=== PATIENT | female | born 1935 | race Caucasian/White ===

== ENCOUNTER → 2016-09-20 | Outpatient (CLI) | payer MEDICARE, OTHER ==
[~2016-09-20] MED LIST: CLOT45CR46 TOP; DILT240C87 PO; DZPM2T PO; FLUO20CA25 PO; GABA-488 PO; GLIM4TAB PO; HUMALOG KWIKPEN SQ; INSU100I23 SQ; IRBE150T19 PO; LANTUS SOLOSTAR SQ; NF-ESOM40C PO; ONDA8TAB9 PO; SCR1T1 PO; SERT50TA9 PO; SIMV40TA4 PO; TRIA1TAB3 PO
--- NOTE | 2016-09-21 11:42 | Diagnostic Imaging Report ---
Thyroid scan and uptake Technique: After the oral administration of 200 ?Ci of I-123 capsule, 4 hour and 24-hour uptake is measured and plantar images over the thyroid gland obtained. Indication: There is noted FINDINGS: Thyroid uptake at 4 hours is 7 %, and the at 24 hours is 22 %. Planar images demonstrate no evidence of a cold or hot nodule. IMPRESSION: Normal thyroid uptake and scan. Dictated by: Dictated on workstation # [id number]
== END ==
LOC: CARD 10:26
PROVIDERS: ATTEND Family Medicine
DX: E04.1 Nontoxic single thyroid nodule (principal)
CPT/HCPCS: 78014

== ENCOUNTER → 2020-05-13 | Outpatient (CLI) | payer MEDICARE, OTHER ==
--- NOTE | 2020-05-13 11:18 | Diagnostic Imaging Report ---
INDICATION: Dysphagia. Procedure was performed in conjunction with speech pathology. Video fluoroscopy was performed during swallowing of barium of multiple consistencies. Patient tested thin barium as well as applesauce, banana, ground meat and cracker consistency. Total of 50 seconds of fluoroscopic time was utilized. Oral phase unremarkable. There is normal epiglottic tilt and laryngeal elevation. No laryngeal penetration or aspiration was observed. No residue was detected. IMPRESSION: Normal modified barium swallow. Dictated by: Dictated on workstation # [id number]
== END ==
LOC: RAD 10:17
PROVIDERS: ATTEND Otolaryngology Otolaryngology/Facial Plastic Surgery
DX: K21.9 Gastro-esophageal reflux disease without esophagitis (principal)
CPT/HCPCS: 74230

== ENCOUNTER → 2020-05-28 | Outpatient (CLI) | payer OTHER | LOC: GIR 16:27 | PROVIDERS: ATTEND Family Medicine | DX: Z01.89 Encounter for other specified special examinations (principal) | CPT/HCPCS: 84132 ==

== ENCOUNTER → 2020-07-22 | Outpatient (CLI) | payer MEDICARE, OTHER ==
[2020-07-22 13:59] LABS: ABSOLUTE RETIC # 85 10e9/uL (24-90); BASOPHILS % (AUTO) 1 % (0-10); EOSINOPHILS # (AUTO) 0.1 10^3/uL (0.0-0.3); EOSINOPHILS % (AUTO) 3 % (0-10); HEMATOCRIT 37 % (35-52); HEMOGLOBIN 12.2 g/dL (11.5-16.0); LYMPHOCYTES # (AUTO) 1.8 10^3/uL (1.0-4.0); LYMPHOCYTES % (AUTO) 41 % (12-44); MEAN CORPUSCULAR HEMOGLOBIN 30 pg (25-34); MEAN CORPUSCULAR HGB CONC 33 g/dL (32-36); MEAN CORPUSCULAR VOLUME 93 fL (80-99); MEAN PLATELET VOLUME 12.3 fL (9.0-12.2); MONOCYTES # (AUTO) 0.3 10^3/uL (0.0-1.0); MONOCYTES % (AUTO) 7 % (0-12); NEUTROPHILS % (AUTO) 47 % (42-75); PLATELET COUNT 124 10^3/uL (130-400); RETICULOCYTE % 2.11 % (0.50-2.40); WHITE BLOOD COUNT 4.3 10^3/uL (4.3-11.0)
[2020-07-22 14:25] LABS: BAND NEUTROPHILS 0 %; BASOPHILS % (MANUAL) 1 %; EOSINOPHILS % (MANUAL) 2 %; LYMPHOCYTES % (MANUAL) 44 %; MONOCYTES % (MANUAL) 5 %; NEUTROPHILS % (MANUAL) 48 %; RBC MORPH NORMAL
== END ==
LOC: GIR 13:05
PROVIDERS: ATTEND Family Medicine
DX: Z01.89 Encounter for other specified special examinations (principal)
CPT/HCPCS: 85007; 85027; 85045; 85055

== ENCOUNTER 2022-02-06 07:58 | Inpatient (IN) | payer MEDICARE, OTHER ==
[~2022-02-06] VITALS: Ht 165.1 cm; Wt 132.6 kg
[2022-02-06 09:15] VITALS: BP 99/40
[2022-02-06] MEDS ORDERED: ONDANSETRON 4 MG/2 ML (SDV) Z0FRAN IV PRN (09:15)
[2022-02-06] MEDS ORDERED: ANTACID SUSP 30 ML UDC (MYLANTA) PO PRN (09:15)
[2022-02-06] MEDS ORDERED: BISACODYL 10 MG SUPP (DULCOLAX) PR PRN (09:15)
[2022-02-06] MEDS ORDERED: MELATONIN 3 MG TABLET PO PRN (09:15)
[2022-02-06] MEDS ORDERED: HALOPERIDOL 5 MG/ML (HALDOL) VIAL IV PRN (09:15)
[2022-02-06] MEDS ORDERED: fentaNYL DRIP PRE-MIX 250 ML IV SCH (09:15)
[2022-02-06] MEDS ORDERED: LACTULOSE SYRUP 10GM/15ML (ENULOSE) 30ML UDC PO PRN (09:15)
[2022-02-06] MEDS ORDERED: diphenhydrAMINE 25 MG TAB (BENADRYL) PO PRN (09:15)
[2022-02-06] MEDS ORDERED: VANCOMYCIN INJECTION 0.1 MG in NS (IVPB) 250 ML IV SCH (09:15)
[2022-02-06] MEDS ORDERED: polyethylene glycoL POWDER 17 GM (MIRALAX) PACK PO PRN (09:15)
[2022-02-06] MEDS ORDERED: diphenhydrAMINE 50 MG/ML INJ (BENADRYL) IVP PRN (09:15)
[2022-02-06] MEDS ORDERED: NS IV 1000 ML 1,000 ML IV SCH ×2 (09:15→13:15)
[2022-02-06] MEDS ORDERED: NS IV 500 ML 500 ML IV PRN (09:15)
[2022-02-06] MEDS ORDERED: MILK OF MAGNESIA 400 MG/5 ML 30 ML UDC PO PRN (09:15)
[2022-02-06] MEDS ORDERED: ACETAMINOPHEN 325 MG TABLET PO PRN (09:15)
[2022-02-06] MEDS ORDERED: ONDANSETRON 4 MG (ZOFRAN) ORAL DISSOLVE TAB PO PRN (09:15)
[2022-02-06] MEDS ORDERED: DexMEDEtomidine 250 ML DRIP 250 ML IV SCH (09:15)
[2022-02-06] MEDS ORDERED: CALCIUM CARBONATE 500 MG (TUMS) TAB.CHEW PO PRN (09:15)
[2022-02-06] MEDS ORDERED: PROPOFOL DRIP (ICU) 100 ML IV ONE (10:54)
[2022-02-06] MEDS ORDERED: PIPERACILLIN SODIUM/TAZOBACTAM 4.5 GM in NS (IVPB) 100 ML IV ONE (11:00)
[2022-02-06 11:16] VITALS: BP 124/98
--- NOTE | 2022-02-06 11:56 | Diagnostic Imaging Report ---
INDICATION: Dyspnea COMPARISON: 05/11/2012 TECHNIQUE: Single radiograph the chest dated 02/06/2022. FINDINGS: Endotracheal tube is present in the distal tip overlying the tracheal air: Above the level of the melani just inferior to the clavicular heads. A right IJ central venous catheter is present. The distal tip is difficult to visualize, though likely terminates overlying the cavoatrial junction. Enteric catheter is present extending the left upper abdomen. The cardiac silhouette is mildly enlarged. Near 10 cm round opacity is noted within the peripheral left mid to upper lung, new from the prior examination. Additional patchy opacities are suggested within the left lung base with potential small left pleural effusion. Right lung is grossly clear. No significant right pleural effusion. No pneumothorax. No acute osseous abnormality. IMPRESSION: New near 10 cm round density within the peripheral left mid and upper lung. This could relate to focal infiltrate such as pneumonia. However, mass lesion/neoplasm should be considered. A CT of the chest, preferably with contrast would help to further evaluate. Left basilar atelectasis and/or pneumonitis with suspected tiny left pleural effusion. Lines and tubes as above. Dictated by: Dictated on workstation # [id number]
[2022-02-06] MEDS ORDERED: ENOXAPARIN 40 MG/0.4 ML (LOVENOX) SYR SC SCH (12:00)
[2022-02-06] MEDS ORDERED: VANCOMYCIN 2000 MG/NS 500 ML IVPB IV SCH ×2 (12:00)
--- NOTE | 2022-02-06 12:31 | Tele-ICU Progress Note ---
Subjective Date Seen by a Provider: Feb 06, 2022 Subjective/Events-last exam This virtual visit was conducted using real time audio/video. Thank you for asking us to see this patient for progressive respiratory failure requiring intubation and mechanical ventilation. Being treated also for pna and sepsis. Recent events: Intubated earlier today 02/06/2022 in [place] and transferred. PMH: DM, HTN, HL, GERD. SH: smoking history: significant 2nd hand exposure. FH: Non-contributory ROS: limited by patient's clinical condition. PE: Obese, pale. 127/44 on Levophed. O2 sat 100% on AC22/450/60%/+5. HEENT: No obvious masses, adenopathy or JVD. Chest: coarse breath sounds on auscultation. CV: RRR S1 S2 No murmur or added sounds. Abd: Non-tender. Bowel sounds Y. : Unremarkable. Thornton Y. CONSUMER ANALYST/psychiatric: Grossly intact. No obvious focal findings. Extremities: 2+ edema. Capillary refill < 3 seconds. Skin: unremarkable. Results: Elevated BNP 19K, WCC 20K, BUN 21, Creat 2.03. Decreased Hb 11.4. B.22/44/83. CXR: Poor quality. 10 CM L mid lung opacity with scattered opacities LLL. Available chart/ vitals / labs / images reviewed. Video assessment done using teleICU camera, rest of exam as per RN. A/P: Respiratory insufficiency: Continue present management with vent., Propofol. Repeat ABG ordered. Monitor for increasing oxygenation needs. Will need CTC with contrast when renal function improves, so as to help delineate nature of L lung 10 cm opacity. Differential includes consolidation, abscess and neoplasm. Critical Care: critically ill patient. Cont. Levophed, abx, SSI, Leelee. Consider Cardiology consult/ECHO. Discussed with RN Christa. Asked RN to reach out to eICU if any questions or concerns later. Time spent with patient/coordination of care with other health professionals (mins): Sepsis Event Evaluation Height, Weight, BMI Height: 5'6.00" Weight: 274lbs. 0.0oz. [id number]; BMI Method:Stated Exam Exam Patient acknowledged, consented, and participated in this virtual visit which was conducted using real time audio/video Vital Signs Date Time Temp Pulse Resp B/P (MAP) Pulse Ox O2 Delivery O2 Flow Rate FiO2 02/06/22 12:07 36.2 02/06/22 11:16 80 22 97 70 02/06/22 10:56 80 Height & Weight Height: 5'6.00" Weight: 274lbs. 0.0oz. [id number]; BMI Method:Stated General Appearance: Chronically ill, Obese Respiratory: Decreased Breath Sounds, Rales (See free text) Peripheral Pulses: 1+ Dorsalis Pedis (R), 1+ Left Dors-Pedis (L) Assessment/Plan Assessment/Plan See free text. Critical Care: Ventilator Management SHIMON PADILLA MD Feb 06, 2022 12:31
[2022-02-06 12:46] LABS: BASOPHILS # (AUTO) 0.1 10^3/uL (0.0-0.1); BASOPHILS % (AUTO) 0 % (0-10); EOSINOPHILS % (AUTO) 0 % (0-10); HEMATOCRIT 35 % (35-52); HEMOGLOBIN 10.8 g/dL (11.5-16.0); LYMPHOCYTES # (AUTO) 1.8 10^3/uL (1.0-4.0); LYMPHOCYTES % (AUTO) 5 % (12-44); MEAN CORPUSCULAR HEMOGLOBIN 30 pg (25-34); MEAN CORPUSCULAR HGB CONC 31 g/dL (32-36); MEAN CORPUSCULAR VOLUME 98 fL (80-99); MEAN PLATELET VOLUME 10.1 fL (9.0-12.2); MONOCYTES # (AUTO) 1.1 10^3/uL (0.0-1.0); MONOCYTES % (AUTO) 3 % (0-12); NEUTROPHILS # (AUTO) 27.7 10^3/uL (1.8-7.8); NEUTROPHILS % (AUTO) 85 % (42-75); PLATELET COUNT 299 10^3/uL (130-400)
[2022-02-06 12:47] LABS: ABG BASE EXCESS -9.4 MMOL/L (-2.5-2.5); ABG OXYGEN SATURATION 100 % (94-100); ABG PCO2 31 MMHG (35-45); ABG PO2 132 MMHG (79-93); ABG TCO2 16.6 MMOL/L (21.0-31.0)
[2022-02-06 12:52] LABS: ABG PH 7.32 (7.37-7.43)
[2022-02-06 12:53] LABS: INSPIRED O2 60 L; PATIENT TEMP 36.3; VENTILATOR YES
[2022-02-06 13:02] LABS: WHITE BLOOD COUNT 32.7 10^3/uL (4.3-11.0)
[2022-02-06 13:05] LABS: ALBUMIN 2.2 GM/DL (3.2-4.5); BILIRUBIN,TOTAL 1.4 MG/DL (0.1-1.0); CALCIUM 8.5 MG/DL (8.5-10.1); CREATININE SERUM 1.92 MG/DL (0.60-1.30); POTASSIUM 4.9 MMOL/L (3.6-5.0); TOTAL PROTEIN 4.9 GM/DL (6.4-8.2)
[2022-02-06 13:11] VITALS: BP 148/54
[2022-02-06] MEDS: RT-ALBUTEROL/IPRATROPIUM 3 ML (DUONEB) VIAL INH SCH ×3 (13:28→21:54)
[2022-02-06 13:29] VITALS: BP 153/48
[2022-02-06] MEDS ORDERED: RT-ALBUTEROL/IPRATROPIUM 3 ML (DUONEB) VIAL INH PRN (13:30)
[2022-02-06 13:35] LABS: ANISOCYTOSIS SLIGHT; BAND NEUTROPHILS 25 %; BASOPHILS % (MANUAL) 0 %; EOSINOPHILS % (MANUAL) 0 %; LYMPHOCYTES % (MANUAL) 7 %; METAMYELOCYTES % 9 %; MONOCYTES % (MANUAL) 4 %; NEUTROPHILS % (MANUAL) 55 %; POLYCHROMASIA SLIGHT
[2022-02-06] MEDS: NS IV 1000 ML 1,000 ML IV SCH ×3 (14:22→23:10)
[2022-02-06] MEDS: NOREPINEPHRINE 8 MG/250 ML 250 ML IV SCH ×2 (14:23→19:45)
[2022-02-06] MEDS: inSUlin ASPART (NovoLOG) 1 UNIT/0.01 ML (CHARGE PER UNIT) SC SCH ×3 (14:23→22:05)
--- NOTE | 2022-02-06 14:46 | Physical Therapy Progress Note ---
Therapy Progress Note Patient is currently intubated and sedated. Will follow and start when appropriate and patient can participate. RICKY RECINOS PT Feb 06, 2022 14:46
--- NOTE | 2022-02-06 15:28 | Consultation-Cardiology ---
HPI-Cardiology Cardiology Consultation: Date of Consultation 02/06/22 Time Seen by a Provider: 15:35 Date of Admission 02-06-22 Attending Physician Karla Rivera MD Admitting Physician Admitting Physician: Criselda Gonzales DO Attending Physician: Criselda Gonzales DO Consulting Physician Ivan Hunt MD HPI: Chief Complaint: Sepsis Ms. Stephen is an 86 yr old female admitted to ICU 2 from [facility]. She is currently intubated and sedated. Her daughter and daughter -in-law are at the bedside. They report she had been in the halfway up until the day before . They report she has had increasing SOB for the last month, but yesterday the SOB became significantly worse. She developed a cough and fever. They report she has had no c/o CP or palpitations. She has had bilat LE ankle swelling for the last few weeks. She had one episode of diarrhea last week. Review of Systems-Cardiology Review of Systems Other comments To the extent that it could be obtained from family is as per [facility] HZD-Slexji-Uuedjc Hx Immunizations Up To Date Date of Pneumonia Vaccine: Mar 11, 2009 Past Medical History PMH As described under Assessment. Family Medical History Family Medical History: Unable to obtain d/t intubation and sedation Allergies and Home Medications Allergies Coded Allergies: Cephalexin Monohydrate (Unverified Allergy, Unknown, 03/12/12) morphine (Unverified Allergy, Unknown, 03/12/12) Uncoded Allergies: tape (Allergy, Mild, 05/11/12) Patient Home Medication List Betamethasone/Clotrimazole (Lotrisone Cream 45 Gm) 45 Gm Tube, 0 TOP BID Prescribed by: KIMBERLY HAILE on 05/11/12 1452 Diazepam (Valium 2 Mg Tab) 2 Mg Tab, 1 EACH PO HS, (Reported) Entered as Reported by: DARY WILKES on 08/12/14 0845 Esomeprazole Mag Trihydrate (Nexium) 40 Mg Capsule.dr, 1 CAP PO BID, (Reported) Entered as Reported by: REMINGTON BROOKS on 03/12/12 1410 Fluoxetine Hcl (Fluoxetine Hcl) 20 Mg Capsule, 1 EACH PO DAILY, (Reported) Entered as Reported by: DARY WILKES on 08/12/14 0845 Gabapentin (Gabapentin) 300 Mg Capsule, 300 MG PO BID, (Reported) Entered as Reported by: DARY WILKES on 08/12/14 0845 Irbesartan (Irbesartan) 150 Mg Tablet, 150 MG PO DAILY, (Reported) Entered as Reported by: REMINGTON BROOKS on 03/12/12 141 Simvastatin (Simvastatin) 40 Mg Tablet, 40 MG PO HS, (Reported) Entered as Reported by: REMINGTON BROOKS on 03/12/12 141 Triamterene/Hydrochlorothiazid (Triamterene-Hctz 37.5-25 Mg Tb) 1 Each Tablet, 1 EACH PO DAILY, (Reported) Entered as Reported by: REMINGTON BROOKS on 03/12/12 141 [Humalog Kwikpen] , SQ AC, (Reported) Entered as Reported by: REMINGTON BROOKS on 03/12/12 1412 [Lantus Solostar] , 60 SQ HS, (Reported) Entered as Reported by: REMINGTON BROOKS on 03/12/121409 Physical Exam-Cardiology Physical Exam Vital Signs/I&O 02/06/22 02/07/22 02/07/22 02/07/22 23:00 00:00 00:00 00:00 Pulse 89 84 87 Resp 21 21 B/P (MAP) 140/55 Pulse Ox 94 96 95 O2 Delivery Mechanical Ventilator Mechanical Ventilator Mechanical Ventilator O2 Flow Rate 40.00 40.00 FiO2 40 02/07/22 02/07/22 02/07/22 02/07/22 01:00 01:00 01:32 01:35 Pulse 84 85 82 83 Resp 19 B/P (MAP) 132/43 144/45 Pulse Ox 96 O2 Delivery Mechanical Ventilator O2 Flow Rate 40.00 02/07/22 02/07/22 02/07/22 02/07/22 01:53 02:00 02:57 02:59 Pulse 82 86 91 91 Resp 19 18 B/P (MAP) 134/58 132/49 Pulse Ox 95 95 O2 Delivery Mechanical Ventilator O2 Flow Rate 40.00 FiO2 40 02/07/22 02/07/22 02/07/22 02/07/22 03:00 03:06 03:30 04:00 Pulse 92 93 85 Resp 18 B/P (MAP) 133/48 (76) 141/44 133/44 Pulse Ox 96 96 O2 Delivery Mechanical Ventilator Mechanical Ventilator O2 Flow Rate 40.00 FiO2 40 02/07/22 02/07/22 02/07/22 02/07/22 04:00 04:18 05:00 05:51 Temp 36.6 Pulse 85 80 80 Resp 18 18 B/P (MAP) 148/56 (86) 154/54 (87) 135/42 Pulse Ox 95 96 O2 Delivery Mechanical Ventilator Mechanical Ventilator O2 Flow Rate 40.00 40.00 02/07/22 02/07/22 02/07/22 02/07/22 06:00 06:03 06:37 07:00 Pulse 80 77 81 80 Resp 17 18 B/P (MAP) 136/47 (76) 118/37 138/42 145/52 (83) Pulse Ox 96 97 O2 Delivery Mechanical Ventilator Mechanical Ventilator O2 Flow Rate 40.00 40.00 02/07/22 02/07/22 02/07/22 02/07/22 07:00 07:00 07:23 08:00 Pulse 86 79 80 Resp 18 B/P (MAP) 146/44 Pulse Ox 96 95 O2 Delivery Mechanical Ventilator FiO2 40 40 02/07/22 02/07/22 02/07/22 02/07/22 08:00 08:01 08:39 08:46 Temp 37.3 Pulse 87 86 81 Resp 28 B/P (MAP) 126/40 142/48 (79) Pulse Ox 97 O2 Delivery Mechanical Ventilator O2 Flow Rate 40.00 02/07/22 02/07/22 02/07/22 09:00 10:00 10:39 Pulse 98 86 86 Resp 19 18 18 B/P (MAP) 154/58 (90) 146/51 (82) Pulse Ox 94 96 96 O2 Delivery Mechanical Ventilator Mechanical Ventilator O2 Flow Rate 40.00 40.00 FiO2 40 02/07/22 00:00 Intake Total 1190 ml Output Total 1300 ml Balance -110 ml Capillary Refill : Constitutional: other (intubated and sedated) HEENT: No xanthelasmas are seen Neck: No carotid bruit; carotid pulses are 2 + bilaterally Respiratory: rhonchi (scattered), other (fair air entry; intubated; coarse breath sounds) Cardiovascular: regular rate-rhythm; No JVD; S1 and S2, systolic murmur Gastrointestinal: soft, audible bowel sounds, other (lg abd hernia) Extremities: no lower extremity edema bilateral Neurologic/Psychiatric: other (unable to cooperate with exam d/t sedation) Skin: No rash on exposed areas, No ulcerations on exposed areas Data Review Labs Laboratory Tests 02/06/22 12:30: White Blood Count 32.7*H, Red Blood Count 3.58L, Hemoglobin 10.8L, Hematocrit 35, Mean Corpuscular Volume 98, Mean Corpuscular Hemoglobin 30, Mean Corpuscular Hemoglobin Concent 31L, Red Cell Distribution Width 14.3, Platelet Count 299, Mean Platelet Volume 10.1, Immature Granulocyte % (Auto) 6, Neutrophils (%) (Auto) 85H, Lymphocytes (%) (Auto) 5L, Monocytes (%) (Auto) 3, Eosinophils (%) (Auto) 0, Basophils (%) (Auto) 0, Neutrophils # (Auto) 27.7H, Lymphocytes # (Auto) 1.8, Monocytes # (Auto) 1.1H, Eosinophils # (Auto) 0.0, Basophils # (Auto) 0.1, Immature Granulocyte # (Auto) 2.0H, Neutrophils % (Manual) 55, Lymphocytes % (Manual) 7, Monocytes % (Manual) 4, Eosinophils % (Manual) 0, Basophils % (Manual) 0, Metamyelocytes % 9, Band Neutrophils 25, Polychromasia SLIGHT, Anisocytosis SLIGHT, Blood Gas Puncture Site L ART LINE, Blood Gas Patient Temperature 36.3, Arterial Blood pH 7.32*L, Arterial Blood Partial Pressure CO2 31L, Arterial Blood Partial Pressure O2 132H, Arterial Blood HCO3 16*L, Arterial Blood Total CO2 16.6L, Arterial Blood Oxygen Saturation 100, Arterial Blood Base Excess -9.4L, Joe Test N/A, Blood Gas Ventilator Setting YES, Blood Gas Inspired Oxygen 60 L, Sodium Level 138, Potassium Level 4.9, Chloride Level 106, Carbon Dioxide Level 14L, Anion Gap 18H, Blood Urea Nitrogen 23H, Creatinine 1.92H, Estimat Glomerular Filtration Rate 25, BUN/Creatinine Ratio 12, Glucose Level 309H, Lactic Acid Level 8.24*H, Calcium Level 8.5, Corrected Calcium 9.9, Total Bilirubin 1.4H, Aspartate Amino Transf (AST/SGOT) 12, Alanine Aminotransferase (ALT/SGPT) 11, Alkaline Phosphatase 59, Total Protein 4.9L, Albumin 2.2L, Triglycerides Level 73 02/06/22 15:25: Lactic Acid Level 8.51*H 02/06/22 15:58: Glucometer 294H 02/06/22 19:30: Lactic Acid Level 9.11*H 02/06/22 20:12: Glucometer 294H 02/06/22 23:35: Lactic Acid Level 7.25*H 02/07/22 01:58: Glucometer 315H 02/07/22 03:07: Lactic Acid Level 4.19*H 02/07/22 05:45: White Blood Count 36.2*H, Red Blood Count 3.49L, Hemoglobin 10.5L, Hematocrit 33L, Mean Corpuscular Volume 95, Mean Corpuscular Hemoglobin 30, Mean Corpuscular Hemoglobin Concent 32, Red Cell Distribution Width 14.3, Platelet Count 265, Mean Platelet Volume 10.0, Immature Granulocyte % (Auto) 6, Neutrophils (%) (Auto) 85H, Lymphocytes (%) (Auto) 5L, Monocytes (%) (Auto) 4, Eosinophils (%) (Auto) 0, Basophils (%) (Auto) 1, Neutrophils # (Auto) 30.6H, Lymphocytes # (Auto) 1.7, Monocytes # (Auto) 1.4H, Eosinophils # (Auto) 0.1, Basophils # (Auto) 0.2H, Immature Granulocyte # (Auto) 2.1H, Sodium Level 139, Potassium Level 3.9, Chloride Level 106, Carbon Dioxide Level 20L, Anion Gap 13, Blood Urea Nitrogen 30H, Creatinine 1.71H, Estimat Glomerular Filtration Rate 29, BUN/Creatinine Ratio 18, Glucose Level 336H, Lactic Acid Level 2.97*H, Calcium Level 8.4L, Corrected Calcium 9.8, Phosphorus Level 2.2L, Magnesium Level 1.2L, Total Bilirubin 0.7, Aspartate Amino Transf (AST/SGOT) 10, Alanine Aminotransferase (ALT/SGPT) 10, Alkaline Phosphatase 59, Total Protein 5.0L, Alb umin 2.2L 02/07/22 08:25: Blood Gas Puncture Site ART LINE, Blood Gas Patient Temperature 36.2, Arterial Blood pH 7.39, Arterial Blood Partial Pressure CO2 38, Arterial Blood Partial Pressure O2 76L, Arterial Blood HCO3 23, Arterial Blood Total CO2 23.8, Arterial Blood Oxygen Saturation 98, Arterial Blood Base Excess -1.8, Joe Test YES-POS, Blood Gas Ventilator Setting YES, Blood Gas Inspired Oxygen 40.0 Microbiology 02/06/22 Gram Stain - Final, Resulted 02/06/22 Sputum Culture, Resulted Pending Radiology NAME: CHIQUITA STEPHEN [facility] REC#: [id number] PT STATUS: ADM IN : 1935 PHYSICIAN: CRISELDA GONZALES DO ADMIT DATE: 02/06/22/ICU Draft Date of Exam:02/06/22 CHEST 1 VIEW, AP/PA ONLY INDICATION: Dyspnea COMPARISON: 05/11/2012 TECHNIQUE: Single radiograph the chest dated 02/06/2022. FINDINGS: Endotracheal tube is present in the distal tip overlying the tracheal air: Above the level of the melani just inferior to the clavicular heads. A right IJ central venous catheter is present. The distal tip is difficult to visualize, though likely terminates overlying the cavoatrial junction. Enteric catheter is present extending the left upper abdomen. The cardiac silhouette is mildly enlarged. Near 10 cm round opacity is noted within the peripheral left mid to upper lung, new from the prior examination. Additional patchy opacities are suggested within the left lung base with potential small left pleural effusion. Right lung is grossly clear. No significant right pleural effusion. No pneumothorax. No acute osseous abnormality. IMPRESSION: New near 10 cm round density within the peripheral left mid and upper lung. This could relate to focal infiltrate such as pneumonia. However, mass lesion/neoplasm should be considered. A CT of the chest, preferably with contrast would help to further evaluate. Left basilar atelectasis and/or pneumonitis with suspected tiny left pleural effusion. Lines and tubes as above. Dictated on workstation # [id number] Dict: 02/06/22 1148 Trans: 02/06/22 1155 [facility] [id number] Interpreted by: WAYNE GARCIAS MD Electronically signed by: A/P-Cardiology Assessment/Admission Diagnosis Acute resp failure requiring intubation/sedation Pneumonia with sepsis - management per medical services CHF - undetermined systolic or diastolic - echocardiogram today HTN CKD per family report DM H/o colon resection d/t diverticulitis Lg abdominal hernia H/O back surgery Limited mobility Discussion and Recomendations Acute respiratory failure with sepsis d/t pneumonia - management per medical/eICU services Hypotension d/t sepsis - requiring pressor support CHF - echocardiogram - treat with diuretics as indicated/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 Gonzales for this consult DARY CROFT Feb 06, 2022 15:28
[2022-02-06] MEDS ORDERED: FUROSEMIDE 40 MG/4 ML INJ (LASIX) IVP NR (16:15)
[2022-02-06 18:15] VITALS: BP 153/47
--- NOTE | 2022-02-06 18:16 | Consultation-Cardiology ---
HPI-Cardiology Cardiology Consultation: Date of Consultation 02/06/22 Time Seen by a Provider: 17:45 Date of Admission Attending Physician Karla Rivera MD Admitting Physician Admitting Physician: Criselda Anderson DO Attending Physician: Criselda Anderson DO Consulting Physician JETT RAMOS MD, MA, FACP, FACC, [facility] [place], CCDS Physician requesting consult: Dr Anderson HPI: Chief Complaint: Reason for Card consult: Ac resp failure Ms. Stephen is an 86 yr old female admitted to ICU 2 [place] [facility] She is currently intubated and sedated. Her daughter and daughter -in-law are at the bedside. They report she had been in the skilled nursing up until the day before . They report she has had increasing SOB for the last month, but yesterday the SOB became significantly worse. She developed a cough and fever. They report she has had no c/o CP or palpitations. She has had bilat LE ankle swelling for the last few weeks. She had one episode of diarrhea last week. [id number]-Tifyln Hx Patient Social History Smoking Status: Never a Smoker Have you traveled recently?: No Alcohol Use?: No Pt feels they are or have been: No Immunizations Up To Date Date of Pneumonia Vaccine: Mar 11, 2009 Date of Influenza Vaccine: Feb 06, 2022 Past Medical History PMH As described under Assessment. Family Medical History Family Medical History: Unable to obtain d/t intubation and sedation Allergies and Home Medications Allergies Coded Allergies: Cephalexin Monohydrate (Unverified Allergy, Unknown, 03/12/12) morphine (Unverified Allergy, Unknown, 03/12/12) Uncoded Allergies: tape (Allergy, Mild, 05/11/12) Patient Home Medication List Home Medication List Reviewed: Yes Betamethasone/Clotrimazole (Lotrisone Cream 45 Gm) 45 Gm Tube, 0 TOP BID Prescribed by: KIMBERLY HAILE on 05/11/12 1452 Diazepam (Valium 2 Mg Tab) 2 Mg Tab, 1 EACH PO HS, (Reported) Entered as Reported by: DARY WILKES on 08/12/14 0845 Esomeprazole Mag Trihydrate (Nexium) 40 Mg Capsule., 1 CAP PO BID, (Reported) Entered as Reported by: REMINGTON BROOKS on 03/12/12 1410 Fluoxetine Hcl (Fluoxetine Hcl) 20 Mg Capsule, 1 EACH PO DAILY, (Reported) Entered as Reported by: DARY WILKES on 08/12/14844 Gabapentin (Gabapentin) 300 Mg Capsule, 300 MG PO BID, (Reported) Entered as Reported by: DARY WILKES on 08/12/14844 Irbesartan (Irbesartan) 150 Mg Tablet, 150 MG PO DAILY, (Reported) Entered as Reported by: REMINGTON BROOKS on 03/12/121409 Simvastatin (Simvastatin) 40 Mg Tablet, 40 MG PO HS, (Reported) Entered as Reported by: REMINGTON BROOKS on 03/12/121409 Triamterene/Hydrochlorothiazid (Triamterene-Hctz 37.5-25 Mg Tb) 1 Each Tablet, 1 EACH PO DAILY, (Reported) Entered as Reported by: REMINGTON BROOKS on 03/12/121409 [Humalog Kwikpen] , SQ AC, (Reported) Entered as Reported by: REMINGTON BROOKS on 03/12/12 141 [Lantus Solostar] , 60 SQ HS, (Reported) Entered as Reported by: REMINGTON BROOKS on 03/12/121409 Physical Exam-Cardiology Physical Exam Vital Signs/I&O 02/06/22 02/06/22 02/06/22 02/06/22 09:15 10:45 10:56 11:00 Temp 36.7 Pulse 61 81 80 65 Resp B/P (MAP) 99/40 (59) 114/61 (78) 103/32 (55) O2 Delivery Mechanical Ventilator Mechanical Ventilator O2 Flow Rate 100.00 60.00 60.00 02/06/22 02/06/22 02/06/22 02/06/22 11:15 11:16 11:30 11:45 Pulse 62 80 59 58 Resp B/P (MAP) 102/42 (62) 124/51 (75) 123/43 (69) Pulse Ox 99 97 99 99 O2 Delivery Mechanical Ventilator Mechanical Ventilator Mechanical Ventilator O2 Flow Rate 60.00 60.00 60.00 FiO2 70 02/06/22 02/06/22 02/06/22 02/06/22 12:00 12:00 12:07 12:15 Temp 36.2 Pulse 59 58 Resp B/P (MAP) 129/46 (73) 137/48 (77) Pulse Ox 99 100 O2 Delivery Mechanical Ventilator Mechanical Ventilator Mechanical Ventilator O2 Flow Rate 60.00 60.00 FiO2 60 02/06/22 02/06/22 02/06/22 02/06/22 13:00 13:00 13:11 13:29 Temp 36.2 Pulse 68 60 60 69 Resp 22 18 B/P (MAP) 148/54 (85) Pulse Ox 100 100 100 O2 Delivery Mechanical Ventilator O2 Flow Rate 60.00 FiO2 60 70 02/06/22 02/06/22 02/06/22 02/06/22 14:00 14:23 15:00 16:00 Pulse 65 64 70 Resp 18 20 B/P (MAP) 123/43 135/42 (73) 154/48 (83) Pulse Ox 97 97 O2 Delivery Mechanical Ventilator Mechanical Ventilator Mechanical Ventilator O2 Flow Rate 40.00 40.00 FiO2 60 02/06/22 02/06/22 16:00 16:00 Temp 36.6 Pulse 66 Resp 20 B/P (MAP) 147/47 (80) Pulse Ox 97 O2 Delivery Mechanical Ventilator O2 Flow Rate 40.00 Capillary Refill : Constitutional: other (intubated and sedated) HEENT: No xanthelasmas are seen Neck: No carotid bruit; carotid pulses are 2 + bilaterally Respiratory: rhonchi (scattered), other (fair air entry; intubated; coarse breath sounds) Cardiovascular: regular rate-rhythm; No JVD; S1 and S2, systolic murmur Gastrointestinal: soft, audible bowel sounds, other (lg abd hernia) Extremities: no lower extremity edema bilateral Neurologic/Psychiatric: other (unable to cooperate with exam d/t sedation) Skin: No rash on exposed areas, No ulcerations on exposed areas Data Review Labs Laboratory Tests 02/06/22 12:30: White Blood Count 32.7*H, Red Blood Count 3.58L, Hemoglobin 10.8L, Hematocrit 35, Mean Corpuscular Volume 98, Mean Corpuscular Hemoglobin 30, Mean Corpuscular Hemoglobin Concent 31L, Red Cell Distribution Width 14.3, Platelet Count 299, Mean Platelet Volume 10.1, Immature Granulocyte % (Auto) 6, Neutrophils (%) (Auto) 85H, Lymphocytes (%) (Auto) 5L, Monocytes (%) (Auto) 3, Eosinophils (%) (Auto) 0, Basophils (%) (Auto) 0, Neutrophils # (Auto) 27.7H, Lymphocytes # (Auto) 1.8, Monocytes # (Auto) 1.1H, Eosinophils # (Auto) 0.0, Basophils # (Auto) 0.1, Immature Granulocyte # (Auto) 2.0H, Neutrophils % (Manual) 55, Lymphocytes % (Manual) 7, Monocytes % (Manual) 4, Eosinophils % (Manual) 0, Basophils % (Manual) 0, Metamyelocytes % 9, Band Neutrophils 25, Polychromasia SLIGHT, Anisocytosis SLIGHT, Blood Gas Puncture Site L ART LINE, Blood Gas Patient Temperature 36.3, Arterial Blood pH 7.32*L, Arterial Blood Partial Pressure CO2 31L, Arterial Blood Partial Pressure O2 132H, Arterial Blood HCO3 16*L, Arterial Blood Total CO2 16.6L, Arterial Blood Oxygen Saturation 100, Arterial Blood Base Excess -9.4L, Joe Test N/A, Blood Gas Ventilator Setting YES, Blood Gas Inspired Oxygen 60 L, Sodium Level 138, Potassium Level 4.9, Chloride Level 106, Carbon Dioxide Level 14L, Anion Gap 18H, Blood Urea Nitrogen 23H, Creatinine 1.92H, Estimat Glomerular Filtration Rate 25, BUN/Creatinine Ratio 12, Glucose Level 309H, Lactic Acid Level 8.24*H, Calcium Level 8.5, Corrected Calcium 9.9, Total Bilirubin 1.4H, Aspartate Amino Transf (AST/SGOT) 12, Alanine Aminotransferase (ALT/SGPT) 11, Alkaline Phosphatase 59, Total Protein 4.9L, Albumin 2.2L, Triglycerides Level 73 02/06/22 15:25: Lactic Acid Level 8.51*H 02/06/22 15:58: Glucometer 294H A/P-Cardiology Assessment/Admission Diagnosis Acute resp failure requiring intubation/sedation Pneumonia with sepsis - management per medical services No evidence of acute coronary syndrome CHF - undetermined systolic or diastolic - echocardiogram HTN 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 Anderson for this consult JETT RAMOS MD FACP FAC CCDS Feb 06, 2022 18:16
[2022-02-06] MEDS: PROPOFOL DRIP (ICU) 100 ML IV SCH ×2 (19:46→21:53)
--- NOTE | 2022-02-06 20:24 | History & Physical ---
History of Present Illness HPI/Chief Complaint CC: Acute respiratory failure requiring intubation HPI: This is an 86 yr old female, pt of Dr. Rivera. Pt has a past medical history of diabetes and hypertension. She presented to the [facility] after a fall the previous day. She was found to be in acute hypoxic respiratory failure with severe sepsis from pneumonia, requiring intubation and central line placement, and higher level of care for ICU admission. I took her, placed all queded orders, and will be monitoring her closely. EICU consulted along with Cardiology and ECHO obtained. EVANGELINA and elevated wbc with bandemia and multisystem organ failure precludes anything but a poor prognosis given her advanced age and overall debility at baseline. Updated PCP Dr Rivera. Source: RN/MD, old records Exam Limitations: clinical condition (intubated) Date Seen 02/06/22 Time Seen by a Provider: 12:30 Attending Physician Karla Rivera MD PCP Admitting Physician: Criselda Anderson DO Attending Physician: Criselda Anderson DO Referring Physician Date of Admission Feb 06, 2022 at 10:49 Home Medications & Allergies Home Medications Reviewed patient Home Medication Reconciliation performed by pharmacy medication reconciliations cad technician and/or nursing. Patients Allergies have been reviewed. Allergies Allergies Coded Allergies Cephalexin Monohydrate (Unverified Allergy, Unknown, 03/12/12) morphine (Unverified Allergy, Unknown, 03/12/12) Uncoded Allergies tape ( Allergy, Mild, 05/11/12) Past Geqbfkq-Wkpnti-Kehlah Hx Past Med/Social Hx: Reviewed Nursing Past Med/Soc Hx, Reviewed and Corrections made Patient Social History Marrital Status: single Employed/Student: retired Smoking Status: Never a Smoker Immunizations Up To Date Date of Pneumonia Vaccine: Mar 11, 2009 Date of Influenza Vaccine: Feb 06, 2022 Seasonal Allergies Seasonal Allergies: Yes Past Medical History Cardiac: High Cholesterol, Hypertension Gastrointestinal: Abdominal Hernia, Gastroesophageal Reflux, Hiatal Hernia Endocrine: Diabetes, Insulin dep Loss of Vision: Denies Hearing Impairment: Denies Family History Heart Disease, CAD Over 55 Years Old Review of Systems Constitutional: see HPI Physical Exam Physical Exam Vital Signs Vital Signs - First Documented 02/06/22 02/06/22 02/06/22 02/06/22 09:15 10:45 11:15 11:16 Temp 36.7 Pulse 61 Resp 22 B/P (MAP) 99/40 (59) Pulse Ox 99 O2 Delivery Mechanical Ventilator O2 Flow Rate 100.00 FiO2 70 Capillary Refill : Height, Weight, BMI Height: 5'6.00" Weight: 274lbs. 0.0oz. 124.131108wv; 36.65 BMI Method:Stated General Appearance: Chronically ill, Obese, Other (sedated and intubated) Respiratory: Decreased Breath Sounds, Rales (See free text) Results Results/Procedures Labs Laboratory Tests 02/06/22 12:30 Patient resulted labs reviewed. Assessment/Plan Admission Diagnosis Assessment: Severe sepsis Metabolic acidosis with lactic acidosis Pneumonia UTI EVANGELINA DM HTN HLP Obesity BMI 36 Advanced age at 86yo Recent fall Anemia Admission Status: Inpatient Order (span 2 midnights) Reason for Inpatient Admission: resp failure Diagnosis/Problems Diagnosis/Problems (1) Acute respiratory failure (2) Pneumonia (3) UTI (urinary tract infection) (4) EVANGELINA (acute kidney injury) (5) Diabetes mellitus (6) Advanced age (7) Obesity (BMI 30-39.9) (8) Severe sepsis (9) Leukocytosis (10) Bandemia (11) Anemia (12) Serum albumin decreased CRISELDA ANDERSON DO Feb 06, 2022 20:24
[2022-02-06 21:54] VITALS: BP 127/39
--- NOTE | 2022-02-06 21:54 | Diagnostic Imaging Report ---
PROCEDURE: CT chest, abdomen, and pelvis without contrast. TECHNIQUE: Multiple contiguous axial images were obtained through the chest, abdomen, and pelvis without the use of intravenous contrast. Auto Exposure Controls were utilized during the CT exam to meet ALARA standards for radiation dose reduction. INDICATION: Pneumonia. Sepsis. Abdominal pain. COMPARISON: None. CT chest: The heart size is within normal limits. No pericardial effusion is present. A right PICC is seen with the tip in the cavoatrial juncture. There is calcified aortic and coronary atherosclerotic plaque. There is no mediastinal, hilar, or axillary lymphadenopathy. Consolidative opacities are seen in the left upper and lower lobe and right lower lobe. No pleural effusion or pneumothorax. No central endobronchial obstructing lesion. Endotracheal tube is in place. No acute osseous abnormalities in the chest. CT abdomen and pelvis: The liver, spleen, pancreas, adrenal glands, and kidneys have a normal appearance. The gallbladder is surgically absent. There is no pathologically enlarged mesenteric or retroperitoneal adenopathy. Enteric tube is seen with the tip in the stomach. The bowel loops are nondilated. There is eventration of the rectus abdominis musculature with protrusion of loops of bowel through the eventration. No associated obstruction. There is no free fluid or free air. Posterior fusion is seen from L4 to S1. No acute fracture is seen in the lumbar spine. There is calcified aortic and iliac atherosclerotic plaque. The urinary bladder is nondistended with a Thornton in place. There is no free air, loculated collection, or adenopathy in the pelvis. IMPRESSION: 1. Multifocal pneumonia involving the left upper lobe and bilateral lower lobes. 2. No acute abnormality in the abdomen and pelvis. Dictated by: Dictated on workstation # [id number]
[2022-02-06] MEDS: SENNOSIDES 8.6 MG (SENOKOT) TAB PO SCH (22:05)
[2022-02-06] MEDS: fluCOnazole (DIFLUCAN) 10MG/ML 35ML BTL PO SCH (22:07)
[2022-02-06] MEDS: PIPERACILLIN SODIUM/TAZOBACTAM 4.5 GM in NS (IVPB) 100 ML IV SCH (22:08)
[2022-02-06] MEDS: MICONAZOLE 2% POWDER (DESENEX AF) 90 GM TOP SCH (22:09)
[2022-02-06] MEDS: DOCUSATE SODIUM 100 MG (COLACE) CAP PO SCH (22:10)
[2022-02-07] MEDS: NOREPINEPHRINE 8 MG/250 ML 250 ML IV SCH ×3 (01:35→15:51)
[2022-02-07 01:53] VITALS: BP 143/44
[2022-02-07] MEDS: RT-ALBUTEROL/IPRATROPIUM 3 ML (DUONEB) VIAL INH SCH ×6 (01:53→22:50)
[2022-02-07] MEDS: inSUlin ASPART (NovoLOG) 1 UNIT/0.01 ML (CHARGE PER UNIT) SC SCH ×3 (02:55→18:31)
[2022-02-07] MEDS: PROPOFOL DRIP (ICU) 100 ML IV SCH ×6 (02:59→23:56)
[2022-02-07] MEDS: PIPERACILLIN SODIUM/TAZOBACTAM 4.5 GM in NS (IVPB) 100 ML IV SCH ×3 (04:20→18:31)
[2022-02-07 05:56] LABS: BASOPHILS # (AUTO) 0.2 10^3/uL (0.0-0.1); BASOPHILS % (AUTO) 1 % (0-10); EOSINOPHILS # (AUTO) 0.1 10^3/uL (0.0-0.3); EOSINOPHILS % (AUTO) 0 % (0-10); HEMATOCRIT 33 % (35-52); HEMOGLOBIN 10.5 g/dL (11.5-16.0); LYMPHOCYTES # (AUTO) 1.7 10^3/uL (1.0-4.0); LYMPHOCYTES % (AUTO) 5 % (12-44); MEAN CORPUSCULAR HEMOGLOBIN 30 pg (25-34); MEAN CORPUSCULAR HGB CONC 32 g/dL (32-36); MEAN CORPUSCULAR VOLUME 95 fL (80-99); MONOCYTES # (AUTO) 1.4 10^3/uL (0.0-1.0); MONOCYTES % (AUTO) 4 % (0-12); NEUTROPHILS # (AUTO) 30.6 10^3/uL (1.8-7.8); NEUTROPHILS % (AUTO) 85 % (42-75); PLATELET COUNT 265 10^3/uL (130-400)
[2022-02-07 05:57] LABS: WHITE BLOOD COUNT 36.2 10^3/uL (4.3-11.0)
[2022-02-07 06:17] LABS: ALBUMIN 2.2 GM/DL (3.2-4.5); BILIRUBIN,TOTAL 0.7 MG/DL (0.1-1.0); CALCIUM 8.4 MG/DL (8.5-10.1); CREATININE SERUM 1.71 MG/DL (0.60-1.30); MAGNESIUM 1.2 MG/DL (1.6-2.4); PHOSPHORUS 2.2 MG/DL (2.3-4.7); POTASSIUM 3.9 MMOL/L (3.6-5.0)
[2022-02-07] MEDS: POTASSIUM CL 10MEQ/50ML IVPB 50 ML IV SCH (06:55)
[2022-02-07] MEDS: KCL 20 MEQ TAB (K-DUR) PO SCH (06:55)
[2022-02-07 07:23] VITALS: BP 136/45
[2022-02-07] MEDS: NS IV 1000 ML 1,000 ML IV SCH ×3 (07:33→23:53)
[2022-02-07] MEDS: MAGNESIUM 1 GM/100 ML IVPB 100 ML IV SCH ×4 (07:34→15:50)
--- NOTE | 2022-02-07 07:54 | Diagnostic Imaging Report ---
INDICATION: Dyspnea. COMPARISON: 02/06/2022 FINDINGS: Single frontal radiograph view of the chest was obtained and demonstrates indwelling endotracheal tube with tip at the clavicular heads. Gastric tube extends inferiorly beyond the [id number]. Right internal jugular central venous catheter seen with tip in the low SVC. Cardiac silhouette remains enlarged. Pulmonary vasculature is within normal limits. Lungs show asymmetric elevation right hemidiaphragm. Masslike consolidation of the left lung persists, but does appear slightly improved. Small effusions may be obscured. There is no pneumothorax on either side. IMPRESSION: 1. Lines and tubes as above. 2. Cardiomegaly. 3. Persistent, but slightly improved consolidative infiltrate of the left lung. Dictated by: Dictated on workstation # [id number]
[2022-02-07 08:36] LABS: ABG BASE EXCESS -1.8 MMOL/L (-2.5-2.5); ABG OXYGEN SATURATION 98 % (94-100); ABG PCO2 38 MMHG (35-45); ABG PH 7.39 (7.37-7.43); ABG PO2 76 MMHG (79-93); ABG TCO2 23.8 MMOL/L (21.0-31.0)
[2022-02-07 08:37] LABS: ALLENS TEST YES-POS
[2022-02-07 08:38] LABS: PATIENT TEMP 36.2; VENTILATOR YES
[2022-02-07] MEDS: PANTOPRAZOLE 40 MG (PROTONIX) VIAL IV SCH (08:38)
[2022-02-07] MEDS: SENNOSIDES 8.6 MG (SENOKOT) TAB PO SCH ×2 (08:38→20:58)
[2022-02-07] MEDS: DOCUSATE SODIUM 100 MG (COLACE) CAP PO SCH ×2 (08:38→20:56)
[2022-02-07] MEDS: MICONAZOLE 2% POWDER (DESENEX AF) 90 GM TOP SCH ×2 (08:39→21:00)
--- NOTE | 2022-02-07 09:10 | Tele-ICU Progress Note ---
Subjective Date Seen by a Provider: Feb 07, 2022 Subjective/Events-last exam This virtual visit was conducted using real time audio/video. Thank you for asking us to see this patient for progressive respiratory failure requiring intubation and mechanical ventilation. Being treated also for pna, CHF and sepsis. Recent events: Intubated 04/08/2021 in [place] and transferred. UO better PMH: DM, HTN, HL, GERD. SH: smoking history: significant 2nd hand exposure. PE: Obese, pale. VSS on Levophed. O2 sat 97% on AC 22/450/40%/+5. HEENT: No obvious masses, adenopathy or JVD. Chest: coarse breath sounds on auscultation. CV: RRR S1 S2 No murmur or added sounds. Abd: Non-tender. Bowel sounds Y. : Unremarkable. Thornton Y. DISPLAY ARTIST/psychiatric: Grossly intact. No obvious focal findings. Extremities: 2+ edema. Capillary refill < 3 seconds. Skin: unremarkable. Results: Elevated BNP 19K, WCC 36.2, BUN 30, Creat 1.71 improved. Decreased Hb 10.5. B.39/38/76. CXR: Poor quality. 10 CM L mid lung opacity with scattered opacities LLL. Available chart/ vitals / labs / images reviewed. Video assessment done using teleICU camera, rest of exam as per RN. A/P: Respiratory insufficiency: Continue present management with vent., Propofol. Repeat ABG improved. No SBT: hypoxia, pressors. Monitor for increasing oxygenation needs. Will need CTC with contrast when renal function improves, so as to help delineate nature of L lung 10 cm opacity. Differential includes consolidation, abscess and neoplasm. Critical Care: critically ill patient. Cont. Levophed, abx, Diflucan, SSI, Leelee. Seen by Cardiology. Discussed with DENNIS Brady. Asked RN to reach out to eICU if any questions or concerns later. Time spent with patient/coordination of care with other health professionals (mins): 23 Sepsis Event Evaluation Height, Weight, BMI Height: 5'6.00" Weight: 274lbs. 0.0oz. 124.301052te; 36.65 BMI Method:Stated Focused Exam Lactate Level 02/06/22 23:35: Lactic Acid Level 7.25*H 02/07/22 03:07: Lactic Acid Level 4.19*H 02/07/22 05:45: Lactic Acid Level 2.97*H Lactic Acid Level Laboratory Tests Test 02/07/22 05:45 Lactic Acid Level 2.97 MMOL/L (0.50-2.00) *H Exam Exam Patient acknowledged, consented, and participated in this virtual visit which was conducted using real time audio/video Vital Signs Date Time Temp Pulse Resp B/P (MAP) Pulse Ox O2 Delivery O2 Flow Rate FiO2 02/07/22 08:46 81 126/40 02/07/22 08:39 86 02/07/22 08:01 37.3 02/07/22 07:23 80 18 96 40 02/07/22 07:00 79 146/44 02/07/22 07:00 86 02/07/22 06:37 81 138/42 02/07/22 06:03 77 118/37 02/07/22 06:00 80 17 136/47 (76) 96 Mechanical Ventilator 40.00 02/07/22 05:51 80 135/42 02/07/22 05:00 80 18 154/54 (87) 96 Mechanical Ventilator 40.00 02/07/22 04:18 36.6 02/07/22 04:00 85 18 148/56 (86) 95 Mechanical Ventilator 40.00 02/07/22 04:00 96 Mechanical Ventilator 40 02/07/22 03:30 85 133/44 02/07/22 03:06 93 141/44 02/07/22 03:00 92 18 133/48 (76) 96 Mechanical Ventilator 40.00 02/07/22 02:59 91 132/49 02/07/22 02:57 91 134/58 02/07/22 02:00 86 18 95 Mechanical Ventilator 40.00 02/07/22 01:53 82 19 95 40 02/07/22 01:35 83 144/45 02/07/22 01:32 82 132/43 02/07/22 01:00 85 19 96 Mechanical Ventilator 40.00 02/07/22 01:00 84 02/07/22 00:00 87 21 95 Mechanical Ventilator 40.00 02/07/22 00:00 84 140/55 02/07/22 00:00 96 Mechanical Ventilator 40 02/06/22 23:00 89 21 94 Mechanical Ventilator 40.00 02/06/22 22:00 82 22 95 Mechanical Ventilator 40.00 02/06/22 21:54 83 23 95 40 02/06/22 21:52 84 129/40 02/06/22 21:00 80 24 95 Mechanical Ventilator 40.00 02/06/22 20:00 80 24 95 Mechanical Ventilator 40.00 133/48 (76) 02/06/22 20:00 85 24 95 Mechanical Ventilator 40.00 147/46 (79) 02/06/22 20:00 95 Mechanical Ventilator 40 02/06/22 19:47 36.9 02/06/22 19:45 70 133/48 02/06/22 19:00 79 02/06/22 19:00 79 25 95 Mechanical Ventilator 40.00 162/51 (88) 02/06/22 18:15 74 23 95 40 02/06/22 18:00 77 23 96 Mechanical Ventilator 40.00 150/48 (82) 02/06/22 17:00 73 24 95 Mechanical Ventilator 40.00 146/51 (82) 02/06/22 16:00 36.6 02/06/22 16:00 66 20 97 Mechanical Ventilator 40.00 147/47 (80) 02/06/22 16:00 Mechanical Ventilator 60 02/06/22 15:00 70 20 97 Mechanical Ventilator 40.00 154/48 (83) 02/06/22 14:23 64 123/43 02/06/22 14:00 65 18 97 Mechanical Ventilator 40.00 135/42 (73) 02/06/22 13:29 69 18 100 70 02/06/22 13:11 36.2 60 100 60 02/06/22 13:00 60 22 100 Mechanical Ventilator 60.00 148/54 (85) 02/06/22 13:00 68 02/06/22 12:15 58 22 100 Mechanical Ventilator 60.00 137/48 (77) 02/06/22 12:07 36.2 02/06/22 12:00 59 22 99 Mechanical Ventilator 60.00 129/46 (73) 02/06/22 12:00 Mechanical Ventilator 60 02/06/22 11:45 58 22 99 Mechanical Ventilator 60.00 123/43 (69) 02/06/22 11:30 59 22 99 Mechanical Ventilator 60.00 124/51 (75) 02/06/22 11:16 80 22 97 70 02/06/22 11:15 62 22 99 Mechanical Ventilator 60.00 102/42 (62) 02/06/22 11:00 65 22 Mechanical Ventilator 60.00 103/32 (55) 02/06/22 10:56 80 02/06/22 10:45 81 22 Mechanical Ventilator 60.00 114/61 (78) 02/06/22 09:15 36.7 61 99/40 (59) 100.00 I & O 02/07/22 06:59 Intake Total 1740 ml Output Total 2025 ml Balance -285 ml Height & Weight Height: 5'6.00" Weight: 274lbs. 0.0oz. 124.729342uj; 36.65 BMI Method:Stated General Appearance: Chronically ill, Obese, Other (sedated and intubated) Respiratory: Decreased Breath Sounds, Rales (See free text) Peripheral Pulses: 1+ Dorsalis Pedis (R), 1+ Left Dors-Pedis (L) Results Lab Laboratory Tests 02/06/22 12:30 02/07/22 05:45 Assessment/Plan Assessment/Plan See free text. Critical Care: Ventilator Management SHIMON PADILLA MD Feb 07, 2022 09:10
[2022-02-07] MEDS: fluCOnazole (DIFLUCAN) 10MG/ML 35ML BTL PO SCH (09:14)
--- NOTE | 2022-02-07 09:27 | Progress Note ---
Subjective Date Seen by a Provider: Feb 07, 2022 Time Seen by a Provider: 10:00 Subjective/Events-last exam Pt is doing really well Maintain on ventilator Lactic acid is going down finally Updated daughter and [id number] at the bedside They do not want this to be a long process, if it turns out ot be that, they want to terminally extubate Kidney function stable Broad spectrum antibiotics maintained Focused Exam Lactate Level 02/06/22 23:35: Lactic Acid Level 7.25*H 02/07/22 03:07: Lactic Acid Level 4.19*H 02/07/22 05:45: Lactic Acid Level 2.97*H Lactic Acid Level Laboratory Tests Test 02/07/22 05:45 Lactic Acid Level 2.97 MMOL/L (0.50-2.00) *H Objective Exam Last Set of Vital Signs Vital Signs Date Time Temp Pulse Resp B/P (MAP) Pulse Ox O2 Delivery O2 Flow Rate FiO2 02/07/22 09:00 98 19 94 Mechanical Ventilator 40.00 02/07/22 08:01 37.3 02/07/22 07:23 40 Capillary Refill : I&O Intake and Output 02/07/22 00:00 Intake Total 1190 ml Output Total 1300 ml Balance -110 ml Intake Oral 0 ml IV Total 1100 ml Other 90 ml Output Urine Total 1300 ml Daily Weight Change No General: Other (sedated and intubated) Lungs: Other (diminished) Heart: Regular Rate Results Lab Laboratory Tests 02/06/22 12:30: White Blood Count 32.7*H, Red Blood Count 3.58L, Hemoglobin 10.8L, Hematocrit 35, Mean Corpuscular Volume 98, Mean Corpuscular Hemoglobin 30, Mean Corpuscular Hemoglobin Concent 31L, Red Cell Distribution Width 14.3, Platelet Count 299, M elza Platelet Volume 10.1, Immature Granulocyte % (Auto) 6, Neutrophils (%) (Auto) 85H, Lymphocytes (%) (Auto) 5L, Monocytes (%) (Auto) 3, Eosinophils (%) (Auto) 0, Basophils (%) (Auto) 0, Neutrophils # (Auto) 27.7H, Lymphocytes # (Auto) 1.8, Monocytes # (Auto) 1.1H, Eosinophils # (Auto) 0.0, Basophils # (Auto) 0.1, Immature Granulocyte # (Auto) 2.0H, Neutrophils % (Manual) 55, Lymphocytes % (Manual) 7, Monocytes % (Manual) 4, Eosinophils % (Manual) 0, Basophils % (Manual) 0, Metamyelocytes % 9, Band Neutrophils 25, Polychromasia SLIGHT, Anisocytosis SLIGHT, Blood Gas Puncture Site L ART LINE, Blood Gas Patient Temperature 36.3, Arterial Blood pH 7.32*L, Arterial Blood Partial Pressure CO2 31L, Arterial Blood Partial Pressure O2 132H, Arterial Blood HCO3 16*L, Arterial Blood Total CO2 16.6L, Arterial Blood Oxygen Saturation 100, Arterial Blood Base Excess -9.4L, Joe Test N/A, Blood Gas Ventilator Setting YES, Blood Gas Inspired Oxygen 60 L, Sodium Level 138, Potassium Level 4.9, Chloride Level 106, Carbon Dioxide Level 14L, Anion Gap 18H, Blood Urea Nitrogen 23H, Creatinine 1.92H, Estimat Glomerular Filtration Rate 25, BUN/Creatinine Ratio 12, Glucose Level 309H, Lactic Acid Level 8.24*H, Calcium Level 8.5, Corrected Calcium 9.9, Total Bilirubin 1.4H, Aspartate Amino Transf (AST/SGOT) 12, Alanine Aminotransferase (ALT/SGPT) 11, Alkaline Phosphatase 59, Total Protein 4.9L, Albumin 2.2L, Triglycerides Level 73 02/06/22 15:25: Lactic Acid Level 8.51*H 02/06/22 15:58: Glucometer 294H 02/06/22 19:30: Lactic Acid Level 9.11*H 02/06/22 20:12: Glucometer 294H 02/06/22 23:35: Lactic Acid Level 7.25*H 02/07/22 01:58: Glucometer 315H 02/07/22 03:07: Lactic Acid Level 4.19*H 02/07/22 05:45: White Blood Count 36.2*H, Red Blood Count 3.49L, Hemoglobin 10.5L, Hematocrit 33L, Mean Corpuscular Volume 95, Mean Corpuscular Hemoglobin 30, Mean Corpuscular Hemoglobin Concent 32, Red Cell Distribution Width 14.3, Platelet Count 265, Mean Platelet Volume 10.0, Immature Granulocyte % (Auto) 6, Neutrophils (%) (Auto) 85H, Lymphocytes (%) (Auto) 5L, Monocytes (%) (Auto) 4, Eosinophils (%) (Auto) 0, Basophils (%) (Auto) 1, Neutrophils # (Auto) 30.6H, Lymphocytes # (Auto) 1.7, Monocytes # (Auto) 1.4H, Eosinophils # (Auto) 0.1, Basophils # (Auto) 0.2H, Immature Granulocyte # (Auto) 2.1H, Sodium Level 139, Potassium Level 3.9, Chloride Level 106, Carbon Dioxide Level 20L, Anion Gap 13, Blood Urea Nitrogen 30H, Creatinine 1.71H, Estimat Glomerular Filtration Rate 29, BUN/Creatinine Ratio 18, Glucose Level 336H, Lactic Acid Level 2.97*H, Calcium Level 8.4L, Corrected Calcium 9.8, Phosphorus Level 2.2L, Magnesium Level 1.2L, Total Bilirubin 0.7, Aspartate Amino Transf (AST/SGOT) 10, Alanine Aminotransferase (ALT/SGPT) 10, Alkaline Phosphatase 59, Total Protein 5.0L, Albumin 2.2L 02/07/22 08:25: Blood Gas Puncture Site ART LINE, Blood Gas Patient Temperature 36.2, Arterial Blood pH 7.39, Arterial Blood Partial Pressure CO2 38, Arterial Blood Partial Pressure O2 76L, Arterial Blood HCO3 23, Arterial Blood Total CO2 23.8, Arterial Blood Oxygen Saturation 98, Arterial Blood Base Excess -1.8, Joe Test YES-POS, Blood Gas Ventilator Setting YES, Blood Gas Inspired Oxygen 40.0 Microbiology 02/06/22 Gram Stain - Final, Resulted 02/06/22 Sputum Culture, Resulted Pending Assessment/Plan Assessment/Plan Assess & Plan/Chief Complaint Assessment: Severe sepsis Metabolic acidosis with lactic acidosis Pneumonia UTI EVANGELINA DM HTN HLP Obesity BMI 36 Advanced age at 86yo Recent fall Anemia Plan: Vent management Supportive care IV abx Diagnosis/Problems Diagnosis/Problems (1) Acute respiratory failure (2) Pneumonia (3) UTI (urinary tract infection) (4) EVANGELINA (acute kidney injury) (5) Diabetes mellitus (6) Advanced age (7) Obesity (BMI 30-39.9) (8) Severe sepsis (9) Leukocytosis (10) Bandemia (11) Anemia (12) Serum albumin decreased SIMONE GONZALES DO Feb 07, 2022 09:27
--- NOTE | 2022-02-07 09:39 | Occ Therapy Progress Note ---
Therapy Progress Note OT orders received and chart reviewed. Pt is currently intubated and sedated. OT will continue to monitor pt status and initiate tx when pt is more medically stable and able to actively participate in skilled therapy. KODI CHUNG OT Feb 07, 2022 09:39
[2022-02-07 10:39] VITALS: BP 137/44
[2022-02-07] MEDS: ENOXAPARIN 40 MG/0.4 ML (LOVENOX) SYR SC SCH ×2 (11:10→20:59)
[2022-02-07] MEDS: VANCOMYCIN 1500 MG/NS 500 ML IVPB IV SCH ×2 (11:10)
--- NOTE | 2022-02-07 11:13 | Progress Note - Cardiology ---
Cardiology SOAP Progress Note Subjective: Remains intubated and sedated Family x 2 at the bedside Objective: I&O/Vital Signs 02/07/22 02/07/22 02/07/22 02/07/22 19:52 20:00 20:00 21:00 Pulse 84 84 80 Resp 18 18 B/P (MAP) 119/48 147/53 (84) 146/49 (81) Pulse Ox 95 95 95 O2 Delivery Mechanical Ventilator Mechanical Ventilator Mechanical Ventilator O2 Flow Rate 40.00 40.00 FiO2 35 02/07/22 02/07/22 02/07/22 02/07/22 22:00 22:35 22:50 23:00 Pulse 80 78 82 82 Resp 19 20 19 B/P (MAP) 150/48 142/49 (80) 129/44 (72) Pulse Ox 95 95 94 O2 Delivery Mechanical Ventilator Mechanical Ventilator O2 Flow Rate 40.00 40.00 FiO2 35 02/07/22 02/07/22 02/07/22 02/08/22 23:17 23:56 23:57 00:00 Pulse 81 80 79 80 Resp 19 B/P (MAP) 120/37 141/43 148/44 144/49 (80) Pulse Ox 93 O2 Delivery Mechanical Ventilator O2 Flow Rate 40.00 02/08/22 02/08/22 02/08/22 02/08/22 00:00 00:45 00:50 01:00 Temp 38.3 Pulse 80 81 B/P (MAP) 130/41 Pulse Ox 93 O2 Delivery Mechanical Ventilator FiO2 30 02/08/22 02/08/22 02/08/22 02/08/22 01:00 01:08 01:10 02:00 Pulse 81 80 79 75 Resp 20 21 B/P (MAP) 122/36 126/41 144/55 (84) 128/48 (74) Pulse Ox 94 94 O2 Delivery Mechanical Ventilator Mechanical Ventilator O2 Flow Rate 40.00 40.00 02/08/22 02/08/22 02/08/22 02/08/22 02:36 03:00 03:37 03:47 Temp 37.9 Pulse 72 79 81 Resp 18 18 B/P (MAP) 141/48 152/53 (86) Pulse Ox 94 93 O2 Delivery Mechanical Ventilator O2 Flow Rate 40.00 FiO2 30 02/08/22 02/08/22 02/08/22 02/08/22 03:48 04:00 04:00 04:10 Pulse 81 79 80 Resp 18 B/P (MAP) 140/47 141/46 152/52 (85) Pulse Ox 93 93 O2 Delivery Mechanical Ventilator Mechanical Ventilator O2 Flow Rate 40.00 FiO2 30 02/08/22 02/08/22 02/08/22 02/08/22 05:00 05:00 06:00 06:17 Pulse 79 81 79 81 Resp 18 21 18 21 B/P (MAP) 151/49 (83) 139/46 (77) Pulse Ox 93 92 94 92 O2 Delivery Mechanical Ventilator Mechanical Ventilator O2 Flow Rate 40.00 40.00 02/08/22 06:40 Pulse 83 Resp 36 Pulse Ox 93 FiO2 30 02/08/22 00:00 Intake Total 1190 ml Output Total 850 ml Balance 340 ml Weight (Pounds): 274 Weight (Ounces): 0.0 Weight (Calculated Kilograms): 124.669449 Constitutional: other (intubated and sedated) Respiratory: rhonchi (scattered), other (fair air entry; intubated; coarse breath sounds) Cardiovascular: regular rate-rhythm; No JVD; S1 and S2, systolic murmur Gastrointestional: soft, audible bowel sounds, other (lg abd hernia) Extremities: no lower extremity edema bilateral Neurologic/Psychiatric: other (unable to cooperate with exam d/t sedation) Skin: No rash on exposed areas, No ulcerations on exposed areas Results/Procedures: Labs Laboratory Tests 02/07/22 08:25: Blood Gas Puncture Site ART LINE, Blood Gas Patient Temperature 36.2, Arterial Blood pH 7.39, Arterial Blood Partial Pressure CO2 38, Arterial Blood Partial Pressure O2 76L, Arterial Blood HCO3 23, Arterial Blood Total CO2 23.8, Arterial Blood Oxygen Saturation 98, Arterial Blood Base Excess -1.8, Joe Test YES-POS, Blood Gas Ventilator Setting YES, Blood Gas Inspired Oxygen 40.0 02/07/22 12:07: Glucometer 255H 02/07/22 18:00: Glucometer 235H 02/07/22 23:59: Glucometer 215H 02/08/22 04:00: White Blood Count 28.2H, Red Blood Count 3.25L, Hemoglobin 9.9L, Hematocrit 31L, Mean Corpuscular Volume 95, Mean Corpuscular Hemoglobin 31, Mean Corpuscular Hemoglobin Concent 32, Red Cell Distribution Width 14.4, Platelet Count 204, Mean Platelet Volume 10.1, Immature Granulocyte % (Auto) 1, Neutrophils (%) (Auto) 85H, Lymphocytes (%) (Auto) 11L, Monocytes (%) (Auto) 3, Eosinophils (%) (Auto) 0, Basophils (%) (Auto) 0, Neutrophils # (Auto) 24.0H, Lymphocytes # (Auto) 3.2, Monocytes # (Auto) 0.8, Eosinophils # (Auto) 0.1, Basophils # (Auto) 0.1, Immature Granulocyte # (Auto) 0.2H, Sodium Level 140, Potassium Level 3.5L, Chloride Level 111H, Carbon Dioxide Level 19L, Anion Gap 10, Blood Urea Nitrogen 27H, Creatinine 1.26, Estimat Glomerular Filtration Rate 42, BUN/Creatinine Ratio 21, Glucose Level 208H, Calcium Level 8.7, Corrected Calcium 10.3H, Phosphorus Level 1.7L, Magnesium Level 1.8, Total Bilirubin 0.5, Aspartate Amino Transf (AST/SGOT) 8, Alanine Aminotransferase (ALT/SGPT) 7, Alkaline Phosphatase 66, Total Protein 4.8L, Albumin 2.0L, Triglycerides Level 166H 02/08/22 06:11: Blood Gas Puncture Site ART LINE, Blood Gas Patient Temperature 37.0, Arterial Blood pH 7.36L, Arterial Blood Partial Pressure CO2 37, Arterial Blood Partial Pressure O2 136H, Arterial Blood HCO3 20L, Arterial Blood Total CO2 21.4, Arterial Blood Oxygen Saturation 100, Arterial Blood Base Excess -4.0L, Joe Test YES-POS, Blood Gas Ventilator Setting YES, Blood Gas Inspired Oxygen 40% Microbiology 02/06/22 Gram Stain - Final, Resulted 02/06/22 Sputum Culture - Preliminary, Resulted YEAST A/P: Assessment: Acute resp failure requiring intubation/sedation Pneumonia with sepsis - management per medical services No evidence of acute coronary syndrome CHF - undetermined systolic or diastolic - echocardiogram HTN CKD-4 (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
--- NOTE | 2022-02-07 11:41 | Physical Therapy Progress Note ---
Therapy Progress Note Patient is currently intubated and sedated. Will follow and start when appropriate and patient can participate. RICKY RECINOS PT Feb 07, 2022 11:41
--- NOTE | 2022-02-07 11:56 | Tele-ICU Progress Note ---
Subjective Date Seen by a Provider: Feb 07, 2022 Subjective/Events-last exam Total time 02/06/2022 40 minutes spent on pt care and communications. Sepsis Event Evaluation Height, Weight, BMI Height: 5'6.00" Weight: 274lbs. 0.0oz. 124.159994eo; 36.65 BMI Method:Stated Focused Exam Lactate Level 02/06/22 23:35: Lactic Acid Level 7.25*H 02/07/22 03:07: Lactic Acid Level 4.19*H 02/07/22 05:45: Lactic Acid Level 2.97*H Exam Exam Patient acknowledged, consented, and participated in this virtual visit which was conducted using real time audio/video Vital Signs Date Time Temp Pulse Resp B/P (MAP) Pulse Ox O2 Delivery O2 Flow Rate FiO2 02/07/22 11:00 87 18 96 Mechanical Ventilator 40.00 139/50 (79) 02/07/22 10:39 86 18 96 40 02/07/22 10:00 86 18 96 Mechanical Ventilator 40.00 146/51 (82) 02/07/22 09:00 98 19 94 Mechanical Ventilator 40.00 154/58 (90) 02/07/22 08:46 81 126/40 02/07/22 08:39 86 02/07/22 08:01 37.3 02/07/22 08:00 87 28 97 Mechanical Ventilator 40.00 142/48 (79) 02/07/22 08:00 95 Mechanical Ventilator 40 02/07/22 07:23 80 18 96 40 02/07/22 07:00 79 146/44 02/07/22 07:00 86 02/07/22 07:00 80 18 97 Mechanical Ventilator 40.00 145/52 (83) 02/07/22 06:37 81 138/42 02/07/22 06:03 77 118/37 02/07/22 06:00 80 17 136/47 (76) 96 Mechanical Ventilator 40.00 02/07/22 05:51 80 135/42 02/07/22 05:00 80 18 154/54 (87) 96 Mechanical Ventilator 40.00 02/07/22 04:18 36.6 02/07/22 04:00 85 18 148/56 (86) 95 Mechanical Ventilator 40.00 02/07/22 04:00 96 Mechanical Ventilator 40 02/07/22 03:30 85 133/44 02/07/22 03:06 93 141/44 02/07/22 03:00 92 18 133/48 (76) 96 Mechanical Ventilator 40.00 02/07/22 02:59 91 132/49 02/07/22 02:57 91 134/58 02/07/22 02:00 86 18 95 Mechanical Ventilator 40.00 02/07/22 01:53 82 19 95 40 02/07/22 01:35 83 144/45 02/07/22 01:32 82 132/43 02/07/22 01:00 85 19 96 Mechanical Ventilator 40.00 02/07/22 01:00 84 02/07/22 00:00 87 21 95 Mechanical Ventilator 40.00 02/07/22 00:00 84 140/55 02/07/22 00:00 96 Mechanical Ventilator 40 02/06/22 23:00 89 21 94 Mechanical Ventilator 40.00 02/06/22 22:00 82 22 95 Mechanical Ventilator 40.00 02/06/22 21:54 83 23 95 40 02/06/22 21:52 84 129/40 02/06/22 21:00 80 24 95 Mechanical Ventilator 40.00 02/06/22 20:00 80 24 95 Mechanical Ventilator 40.00 133/48 (76) 02/06/22 20:00 85 24 95 Mechanical Ventilator 40.00 147/46 (79) 02/06/22 20:00 95 Mechanical Ventilator 40 02/06/22 19:47 36.9 02/06/22 19:45 70 133/48 02/06/22 19:00 79 02/06/22 19:00 79 25 95 Mechanical Ventilator 40.00 162/51 (88) 02/06/22 18:15 74 23 95 40 02/06/22 18:00 77 23 96 Mechanical Ventilator 40.00 150/48 (82) 02/06/22 17:00 73 24 95 Mechanical Ventilator 40.00 146/51 (82) 02/06/22 16:00 36.6 02/06/22 16:00 66 20 97 Mechanical Ventilator 40.00 147/47 (80) 02/06/22 16:00 Mechanical Ventilator 60 02/06/22 15:00 70 20 97 Mechanical Ventilator 40.00 154/48 (83) 02/06/22 14:23 64 123/43 02/06/22 14:00 65 18 97 Mechanical Ventilator 40.00 135/42 (73) 02/06/22 13:29 69 18 100 70 02/06/22 13:11 36.2 60 100 60 02/06/22 13:00 60 22 100 Mechanical Ventilator 60.00 148/54 (85) 02/06/22 13:00 68 02/06/22 12:15 58 22 100 Mechanical Ventilator 60.00 137/48 (77) 02/06/22 12:07 36.2 02/06/22 12:00 59 22 99 Mechanical Ventilator 60.00 129/46 (73) 02/06/22 12:00 Mechanical Ventilator 60 I & O 02/07/22 07:00 Intake Total 1740 ml Output Total 2025 ml Balance -285 ml Height & Weight Height: 5'6.00" Weight: 274lbs. 0.0oz. 124.667591pk; 36.65 BMI Method:Stated General Appearance: Chronically ill, Obese, Other (sedated and intubated) Respiratory: Decreased Breath Sounds, Rales (See free text) Peripheral Pulses: 1+ Dorsalis Pedis (R), 1+ Left Dors-Pedis (L) Results Lab Laboratory Tests 02/06/22 12:30 02/07/22 05:45 Assessment/Plan Assessment/Plan see free text Critical Care: Ventilator Management SHIMON PADILLA MD Feb 07, 2022 11:56
[2022-02-07] MEDS ORDERED: TELM80TA8 PO (12:47)
[2022-02-07] MEDS ORDERED: CLOT15CR6 TOP (12:47)
[2022-02-07] MEDS ORDERED: OXYB15TA19 PO (12:47)
[2022-02-07] MEDS ORDERED: DIAZ2TAB2 PO (12:47)
[2022-02-07] MEDS ORDERED: ATOR10TA66 PO (12:47)
[2022-02-07] MEDS ORDERED: HYDR-3584 PO (12:47)
[2022-02-07] MEDS ORDERED: GABA300C PO (12:47)
[2022-02-07] MEDS ORDERED: AMLO-250 PO (12:47)
[2022-02-07] MEDS ORDERED: INSU100V6 SC (12:47)
[2022-02-07] MEDS ORDERED: FURO20TA4 PO (12:47)
[2022-02-07] MEDS ORDERED: ESOM20CA58 PO (12:47)
[2022-02-07] MEDS ORDERED: ACET-11 PO (12:47)
[2022-02-07] MEDS ORDERED: FLUO40CA PO (12:47)
[2022-02-07] MEDS ORDERED: FOLI1TAB33 PO (12:47)
[2022-02-07] MEDS ORDERED: NEBI2.5T6 PO (12:47)
[2022-02-07] MEDS ORDERED: INSU100V6 SQ (12:47)
[2022-02-07] MEDS: LORazepam INJ 2 MG/ML (ATIVAN) VIAL IVP PRN (13:19)
[2022-02-07 15:17] VITALS: BP 113/89
--- NOTE | 2022-02-07 17:16 | Progress Note - Cardiology ---
Cardiology SOAP Progress Note Subjective: She is on mech vent and sedated and unable to communicate Objective: I&O/Vital Signs 02/07/22 02/07/22 02/07/22 02/07/22 05:51 06:00 06:03 06:37 Pulse 80 80 77 81 Resp 17 B/P (MAP) 135/42 136/47 (76) 118/37 138/42 Pulse Ox 96 O2 Delivery Mechanical Ventilator O2 Flow Rate 40.00 02/07/22 02/07/22 02/07/22 02/07/22 07:00 07:00 07:00 07:23 Pulse 80 86 79 80 Resp 18 18 B/P (MAP) 146/44 145/52 (83) Pulse Ox 97 96 O2 Delivery Mechanical Ventilator O2 Flow Rate 40.00 FiO2 40 02/07/22 02/07/22 02/07/22 02/07/22 08:00 08:00 08:01 08:39 Temp 37.3 Pulse 87 86 Resp 28 B/P (MAP) 142/48 (79) Pulse Ox 95 97 O2 Delivery Mechanical Ventilator Mechanical Ventilator O2 Flow Rate 40.00 FiO2 40 02/07/22 02/07/22 02/07/22 02/07/22 08:46 09:00 10:00 10:39 Pulse 81 98 86 86 Resp 19 18 18 B/P (MAP) 126/40 154/58 (90) 146/51 (82) Pulse Ox 94 96 96 O2 Delivery Mechanical Ventilator Mechanical Ventilator O2 Flow Rate 40.00 40.00 FiO2 40 02/07/22 02/07/22 02/07/22 02/07/22 11:00 12:00 12:00 13:00 Pulse 87 86 84 Resp 18 18 18 B/P (MAP) 139/50 (79) 144/49 (80) 153/52 (85) Pulse Ox 96 95 96 96 O2 Delivery Mechanical Ventilator Mechanical Ventilator Mechanical Ventilator Mechanical Ventilator O2 Flow Rate 40.00 40.00 40.00 FiO2 35 02/07/22 02/07/22 02/07/22 02/07/22 13:00 14:00 15:00 15:17 Pulse 80 81 76 78 Resp 18 18 19 B/P (MAP) 137/48 (77) 144/50 (81) Pulse Ox 96 96 96 O2 Delivery Mechanical Ventilator Mechanical Ventilator O2 Flow Rate 40.00 40.00 FiO2 35 02/07/22 02/07/22 02/07/22 15:50 15:51 16:00 Pulse 79 78 Resp 18 B/P (MAP) 151/50 136/47 (76) Pulse Ox 95 O2 Delivery Mechanical Ventilator O2 Flow Rate 40.00 02/07/22 00:00 Intake Total 1190 ml Output Total 1300 ml Balance -110 ml Weight (Pounds): 274 Weight (Ounces): 0.0 Weight (Calculated Kilograms): 124.341952 Constitutional: other (intubated and sedated) Respiratory: rhonchi (scattered), other (fair air entry; intubated; coarse breath sounds) Cardiovascular: regular rate-rhythm; No JVD; S1 and S2, systolic murmur Gastrointestional: soft, audible bowel sounds, other (lg abd hernia) Extremities: no lower extremity edema bilateral Neurologic/Psychiatric: other (unable to cooperate with exam d/t sedation) Skin: No rash on exposed areas, No ulcerations on exposed areas Results/Procedures: Labs Laboratory Tests 02/06/22 19:30: Lactic Acid Level 9.11*H 02/06/22 20:12: Glucometer 294H 02/06/22 23:35: Lactic Acid Level 7.25*H 02/07/22 01:58: Glucometer 315H 02/07/22 03:07: Lactic Acid Level 4.19*H 02/07/22 05:45: Lactic Acid Level 2.97*H, White Blood Count 36.2*H, Red Blood Count 3.49L, Hemoglobin 10.5L, Hematocrit 33L, Mean Corpuscular Volume 95, Mean Corpuscular Hemoglobin 30, Mean Corpuscular Hemoglobin Concent 32, Red Cell Distribution Width 14.3, Platelet Count 265, Mean Platelet Volume 10.0, Immature Granulocyte % (Auto) 6, Neutrophils (%) (Auto) 85H, Lymphocytes (%) (Auto) 5L, Monocytes (%) (Auto) 4, Eosinophils (%) (Auto) 0, Basophils (%) (Auto) 1, Neutrophils # (Auto) 30.6H, Lymphocytes # (Auto) 1.7, Monocytes # (Auto) 1.4H, Eosinophils # (Auto) 0.1, Basophils # (Auto) 0.2H, Immature Granulocyte # (Auto) 2.1H, Sodium Level 139, Potassium Level 3.9, Chloride Level 106, Carbon Dioxide Level 20L, Anion Gap 13, Blood Urea Nitrogen 30H, Creatinine 1.71H, Estimat Glomerular Filtration Rate 29, BUN/Creatinine Ratio 18, Glucose Level 336H, Calcium Level 8.4L, Corre cted Calcium 9.8, Phosphorus Level 2.2L, Magnesium Level 1.2L, Total Bilirubin 0.7, Aspartate Amino Transf (AST/SGOT) 10, Alanine Aminotransferase (ALT/SGPT) 10, Alkaline Phosphatase 59, Total Protein 5.0L, Albumin 2.2L 02/07/22 08:25: Blood Gas Puncture Site ART LINE, Blood Gas Patient Temperature 36.2, Arterial Blood pH 7.39, Arterial Blood Partial Pressure CO2 38, Arterial Blood Partial Pressure O2 76L, Arterial Blood HCO3 23, Arterial Blood Total CO2 23.8, Arterial Blood Oxygen Saturation 98, Arterial Blood Base Excess -1.8, Joe Test YES-POS, Blood Gas Ventilator Setting YES, Blood Gas Inspired Oxygen 40.0 02/07/22 12:07: Glucometer 255H Microbiology 02/06/22 Gram Stain - Final, Resulted 02/06/22 Sputum Culture - Preliminary, Resulted YEAST Laboratory Tests 02/06/22 12:30 02/07/22 05:45 A/P: Assessment: Acute resp failure requiring intubation/sedation Pneumonia with sepsis - management per medical services Probably some acute diastolic CHF - echo on 02/07/22: LVEF 60-65%, mild MAC, AoV sclerosis w/o stenosis, PASP 40- 45 mmHg No evidence of acute coronary syndrome HTN 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
[2022-02-07 19:22] VITALS: BP 113/89
[2022-02-07 22:50] VITALS: BP 131/42
[2022-02-08] MEDS: inSUlin ASPART (NovoLOG) 1 UNIT/0.01 ML (CHARGE PER UNIT) SC SCH ×5 (00:03→23:40)
[2022-02-08] MEDS: NOREPINEPHRINE 8 MG/250 ML 250 ML IV SCH ×2 (01:10→10:15)
[2022-02-08] MEDS: PIPERACILLIN SODIUM/TAZOBACTAM 4.5 GM in NS (IVPB) 100 ML IV SCH ×3 (01:58→19:33)
[2022-02-08 02:36] VITALS: BP 127/41
[2022-02-08] MEDS: RT-ALBUTEROL/IPRATROPIUM 3 ML (DUONEB) VIAL INH SCH ×5 (02:40→22:19)
[2022-02-08 04:09] LABS: BASOPHILS # (AUTO) 0.1 10^3/uL (0.0-0.1); BASOPHILS % (AUTO) 0 % (0-10); EOSINOPHILS # (AUTO) 0.1 10^3/uL (0.0-0.3); EOSINOPHILS % (AUTO) 0 % (0-10); HEMATOCRIT 31 % (35-52); HEMOGLOBIN 9.9 g/dL (11.5-16.0); LYMPHOCYTES # (AUTO) 3.2 10^3/uL (1.0-4.0); LYMPHOCYTES % (AUTO) 11 % (12-44); MEAN CORPUSCULAR HEMOGLOBIN 31 pg (25-34); MEAN CORPUSCULAR HGB CONC 32 g/dL (32-36); MEAN CORPUSCULAR VOLUME 95 fL (80-99); MEAN PLATELET VOLUME 10.1 fL (9.0-12.2); MONOCYTES # (AUTO) 0.8 10^3/uL (0.0-1.0); MONOCYTES % (AUTO) 3 % (0-12); NEUTROPHILS % (AUTO) 85 % (42-75); PLATELET COUNT 204 10^3/uL (130-400); WHITE BLOOD COUNT 28.2 10^3/uL (4.3-11.0)
[2022-02-08 04:21] LABS: POTASSIUM 3.5 MMOL/L (3.6-5.0)
[2022-02-08 04:22] LABS: CALCIUM 8.7 MG/DL (8.5-10.1)
[2022-02-08 04:23] LABS: TOTAL PROTEIN 4.8 GM/DL (6.4-8.2)
[2022-02-08 04:25] LABS: BILIRUBIN,TOTAL 0.5 MG/DL (0.1-1.0)
[2022-02-08 04:26] LABS: PHOSPHORUS 1.7 MG/DL (2.3-4.7)
[2022-02-08 04:27] LABS: CREATININE SERUM 1.26 MG/DL (0.60-1.30)
[2022-02-08 04:30] LABS: MAGNESIUM 1.8 MG/DL (1.6-2.4)
[2022-02-08] MEDS: PROPOFOL DRIP (ICU) 100 ML IV SCH ×2 (04:48→16:31)
[2022-02-08] MEDS: MAGNESIUM 1 GM/100 ML IVPB 100 ML IV SCH (06:32)
[2022-02-08 06:40] VITALS: BP 158/54
[2022-02-08] MEDS: POTASSIUM CL 10MEQ/50ML IVPB 50 ML IV SCH ×3 (06:49→07:53)
[2022-02-08 06:50] LABS: ABG OXYGEN SATURATION 100 % (94-100); ABG PCO2 37 MMHG (35-45); ABG PH 7.36 (7.37-7.43); ABG PO2 136 MMHG (79-93); ABG TCO2 21.4 MMOL/L (21.0-31.0)
[2022-02-08] MEDS: KCL 20 MEQ TAB (K-DUR) PO SCH (06:50)
[2022-02-08 06:52] LABS: ALLENS TEST YES-POS
--- NOTE | 2022-02-08 06:52 | Occ Therapy Progress Note ---
Therapy Progress Note Pt currently intubated. OT to monitor pt's status then will initiate treatment when pt is medically stable and able to actively participate in skilled therapy. CRISTIAN SIM Feb 08, 2022 06:52
[2022-02-08 06:53] LABS: INSPIRED O2 40%; VENTILATOR YES
--- NOTE | 2022-02-08 07:30 | Physical Therapy Progress Note ---
Therapy Progress Note Patient is currently intubated and sedated. Will follow and start when appropriate and patient can participate. ABEBA GALVEZ PT Feb 08, 2022 07:30
[2022-02-08] MEDS: NS IV 1000 ML 1,000 ML IV SCH ×2 (07:58→17:53)
--- NOTE | 2022-02-08 08:20 | Diagnostic Imaging Report ---
INDICATION: Shortness of breath Portable chest 5:59 AM There is ET tube projects over the trachea. NG tube appears to enter the stomach. Right IJ central line tip projects over the SVC. There is infiltrate in the perihilar region of left lung. There is volume loss at both lung bases. IMPRESSION: Left perihilar infiltrate suspicious for pneumonia. This appears similar to previous day. Dictated by: Dictated on workstation # [id number]
--- NOTE | 2022-02-08 08:37 | Progress Note - Cardiology ---
Cardiology SOAP Progress Note Subjective: Remains intubated and sedated Objective: I&O/Vital Signs 02/08/22 02/08/22 02/08/22 02/09/22 23:00 23:20 23:40 00:00 Temp 37.2 Pulse 79 79 Resp 22 21 B/P (MAP) 156/46 (82) 156/46 (82) Pulse Ox 95 99 99 O2 Delivery Mechanical Ventilator Mechanical Ventilator Mechanical Ventilator O2 Flow Rate 30.00 30.00 FiO2 30 40 02/09/22 02/09/22 02/09/22 02/09/22 00:00 00:49 01:00 01:00 Pulse 78 75 76 80 Resp 20 B/P (MAP) 165/52 158/49 (85) 145/43 (77) Pulse Ox 99 99 O2 Delivery Mechanical Ventilator Mechanical Ventilator O2 Flow Rate 30.00 30.00 02/09/22 02/09/22 02/09/22 02/09/22 02:00 02:15 03:00 03:14 Temp 37.0 Pulse 75 73 Resp B/P (MAP) 141/43 (75) 130/47 (74) Pulse Ox 92 96 O2 Delivery Mechanical Ventilator Mechanical Ventilator Mechanical Ventilator O2 Flow Rate 30.00 30.00 30.00 FiO2 30 02/09/22 02/09/22 02/09/22 02/09/22 03:15 04:00 04:31 05:00 Pulse 73 75 71 Resp 19 19 B/P (MAP) 128/46 128/41 (70) 134/44 (74) Pulse Ox 97 95 95 O2 Delivery Mechanical Ventilator Mechanical Ventilator Mechanical Ventilator O2 Flow Rate 30.00 30.00 FiO2 30 02/09/22 02/09/22 02/09/22 02/09/22 05:15 06:00 06:32 07:00 Pulse 73 73 75 Resp 19 20 21 B/P (MAP) 136/43 (74) 133/41 (71) Pulse Ox 96 96 93 O2 Delivery Mechanical Ventilator Mechanical Ventilator O2 Flow Rate 30.00 30.00 FiO2 30 30 02/09/22 02/09/22 02/09/22 02/09/22 07:00 08:00 09:00 10:00 Pulse 77 79 80 78 Resp 21 B/P (MAP) 128/36 (66) 135/37 (69) 141/87 (105) Pulse Ox 90 91 90 O2 Delivery Mechanical Ventilator Mechanical Ventilator Mechanical Ventilator O2 Flow Rate 30.00 30.00 30.00 02/09/22 02/09/22 10:31 10:34 Pulse 79 Resp 21 Pulse Ox 91 O2 Delivery Mechanical Ventilator O2 Flow Rate 35.00 FiO2 35 02/09/22 00:00 Intake Total 1320 ml Output Total 325 ml Balance 995 ml Weight (Pounds): 274 Weight (Ounces): 0.0 Weight (Calculated Kilograms): 124.780817 Constitutional: other (intubated and sedated) Respiratory: rhonchi (scattered), other (fair air entry; intubated; coarse breath sounds) Cardiovascular: regular rate-rhythm; No JVD; S1 and S2, systolic murmur Gastrointestional: soft, audible bowel sounds, other (lg abd hernia) Extremities: no lower extremity edema bilateral Neurologic/Psychiatric: other (unable to cooperate with exam d/t sedation) Skin: No rash on exposed areas, No ulcerations on exposed areas Results/Procedures: Labs Laboratory Tests 02/08/22 11:56: Glucometer 190H 02/08/22 18:37: Glucometer 170H 02/08/22 23:22: Glucometer 195H 02/09/22 03:09: White Blood Count 17.2H, Red Blood Count 2.83L, Hemoglobin 8.5L, Hematocrit 27L, Mean Corpuscular Volume 95, Mean Corpuscular Hemoglobin 30, Mean Corpuscular Hemoglobin Concent 32, Red Cell Distribution Width 14.6H, Platelet Count 147, Mean Platelet Volume 10.5, Immature Granulocyte % (Auto) 1, Neutrophils (%) (Auto) 82H, Lymphocytes (%) (Auto) 12, Monocytes (%) (Auto) 4, Eosinophils (%) (Auto) 1, Basophils (%) (Auto) 0, Neutrophils # (Auto) 14.0H, Lymphocytes # (Auto) 2.1, Monocytes # (Auto) 0.7, Eosinophils # (Auto) 0.2, Basophils # (Auto) 0.1, Immature Granulocyte # (Auto) 0.1, Sodium Level 142, Potassium Level 3.7, Chloride Level 115H, Carbon Dioxide Level 16L, Anion Gap 11, Blood Urea Nitrogen 24H, Creatinine 1.06, Estimat Glomerular Filtration Rate 51, BUN/Creatinine Ratio 23, Glucose Level 214H, Calcium Level 8.6, Corrected Calcium 10.4H, Phosphorus Level 2.1L, Magnesium Level 1.7, Total Bilirubin 0.7, Aspartate Amino Transf (AST/SGOT) 13, Alanine Aminotransferase (ALT/SGPT) 9, Alkaline Phosphatase 67, Total Protein 4.4L, Albumin 1.8L 02/09/22 04:38: Blood Gas Puncture Site RIGHT RADIAL, Blood Gas Patient Temperature 37.0, Arterial Blood pH 7.35L, Arterial Blood Partial Pressure CO2 36, Arterial Blood Partial Pressure O2 70L, Arterial Blood HCO3 20L, Arterial Blood Total CO2 20.6L , Arterial Blood Oxygen Saturation 96, Arterial Blood Base Excess -5.1L, Joe Test YES-POS, Blood Gas Ventilator Setting YES, Blood Gas Inspired Oxygen NA 02/09/22 05:56: Glucometer 202H Microbiology 02/07/22 Gram Stain - Final, Resulted 02/07/22 Sputum Culture - Preliminary, Resulted Culture In Progress Procedures NAME: CHIQUITA LERNER Markel [facility] REC#: [id number] PT STATUS: ADM IN : 1935 PHYSICIAN: SIMONE GONZALES DO ADMIT DATE: 02/06/22/ICU Draft Date of Exam:02/08/22 CHEST 1 VIEW, AP/PA ONLY INDICATION: Shortness of breath Portable chest 5:59 AM There is ET tube projects over the trachea. NG tube appears to enter the stomach. Right IJ central line tip projects over the SVC. There is infiltrate in the perihilar region of left lung. There is volume loss at both lung bases. IMPRESSION: Left perihilar infiltrate suspicious for pneumonia. This appears similar to previous day. 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
--- NOTE | 2022-02-08 08:53 | Tele-ICU Progress Note ---
Subjective Date Seen by a Provider: Feb 08, 2022 Subjective/Events-last exam This virtual visit was conducted using real time audio/video. Thank you for asking us to see this patient for progressive respiratory failure requiring intubation and mechanical ventilation. Being treated also for pna, CHF and sepsis. Recent events: Intubated 04/08/2021 in [place] and transferred. PMH: DM, HTN, HL, GERD CKD. SH: smoking history: significant 2nd hand exposure. PE: Obese, pale. VSS on Levophed. O2 sat 95% on AC 22/450/30%/+5. HEENT: No obvious masses, adenopathy or JVD. Chest: coarse breath sounds on auscultation. CV: RRR S1 S2 No murmur or added sounds. Abd: Non-tender. Bowel sounds Y. : Unremarkable. [place] Y. LAPIDARIST/psychiatric: Grossly intact. No obvious focal findings. Extremities: 2+ edema. Capillary refill < 3 seconds. Skin: unremarkable. Results: Elevated BNP 19K, WCC 28.2, improved, BUN 27, Creat normal. Decreased Hb 9.9. B.36/37/136 on 40%. CXR: Poor quality. 10 CM L mid lung opacity now appears more like consolidation ,with scattered opacities LLL. Available chart/ vitals / labs / images reviewed. Video assessment done using teleICU camera, rest of exam as per RN. A/P: Respiratory insufficiency: Continue present management with vent., Propofo,duonebs, PRN Ativanl. No SBT: hypoxia, sedatives,pressors. Monitor for increasing oxygenation needs. Possibly will need CTC with contrast when renal function improves, so as to help delineate nature of L lung 10 cm opacity. Differential includes consolidation, abscess and neoplasm. Appearing more like consolidation. Critical Care: critically ill patient. Cont. Levophed, abx, Diflucan, SSI, Leelee. Seen by Cardiology. Discussed with DENNIS Thompson. Asked RN to reach out to eICU if any questions or concerns later. Time spent with patient/coordination of care with other health professionals (mins): 25 Sepsis Event Evaluation Height, Weight, BMI Height: 5'6.00" Weight: 274lbs. 0.0oz. 124.058787hl; 36.65 BMI Method:Stated Focused Exam Lactate Level 02/06/22 23:35: Lactic Acid Level 7.25*H 02/07/22 03:07: Lactic Acid Level 4.19*H 02/07/22 05:45: Lactic Acid Level 2.97*H Exam Exam Patient acknowledged, consented, and participated in this virtual visit which was conducted using real time audio/video Vital Signs Date Time Temp Pulse Resp B/P (MAP) Pulse Ox O2 Delivery O2 Flow Rate FiO2 02/08/22 08:00 37.7 02/08/22 07:00 87 02/08/22 06:58 87 23 94 30 02/08/22 06:40 83 36 93 30 02/08/22 06:17 81 21 92 02/08/22 06:00 79 18 94 Mechanical Ventilator 40.00 139/46 (77) 02/08/22 05:00 81 21 92 02/08/22 05:00 79 18 93 Mechanical Ventilator 40.00 151/49 (83) 02/08/22 04:10 80 141/46 02/08/22 04:00 93 Mechanical Ventilator 30 02/08/22 04:00 79 18 93 Mechanical Ventilator 40.00 152/52 (85) 02/08/22 03:48 81 140/47 02/08/22 03:47 81 141/48 02/08/22 03:37 37.9 02/08/22 03:00 79 18 93 Mechanical Ventilator 40.00 152/53 (86) 02/08/22 02:36 72 18 94 30 02/08/22 02:00 75 21 94 Mechanical Ventilator 40.00 128/48 (74) 02/08/22 01:10 79 126/41 02/08/22 01:08 80 122/36 02/08/22 01:00 81 20 94 Mechanical Ventilator 40.00 144/55 (84) 02/08/22 01:00 81 02/08/22 00:50 38.3 02/08/22 00:45 80 130/41 02/08/22 00:00 93 Mechanical Ventilator 30 02/08/22 00:00 80 19 93 Mechanical Ventilator 40.00 144/49 (80) 02/07/22 23:57 79 148/44 02/07/22 23:56 80 141/43 02/07/22 23:17 81 120/37 02/07/22 23:00 82 19 94 Mechanical Ventilator 40.00 129/44 (72) 02/07/22 22:50 82 20 95 35 02/07/22 22:35 78 150/48 02/07/22 22:00 80 19 95 Mechanical Ventilator 40.00 142/49 (80) 02/07/22 21:00 80 18 95 Mechanical Ventilator 40.00 146/49 (81) 02/07/22 20:00 95 Mechanical Ventilator 35 02/07/22 20:00 84 18 95 Mechanical Ventilator 40.00 147/53 (84) 02/07/22 19:52 84 119/48 02/07/22 19:29 37.1 02/07/22 19:22 80 18 94 35 02/07/22 19:00 80 02/07/22 19:00 77 18 94 Mechanical Ventilator 40.00 147/50 (82) 02/07/22 18:00 77 18 95 Mechanical Ventilator 40.00 145/51 (82) 02/07/22 17:00 76 18 95 Mechanical Ventilator 40.00 144/49 (80) 02/07/22 16:00 78 18 95 Mechanical Ventilator 40.00 136/47 (76) 02/07/22 16:00 95 Mechanical Ventilator 35 02/07/22 15:51 151/50 02/07/22 15:50 79 02/07/22 15:17 78 19 96 35 02/07/22 15:00 76 18 96 Mechanical Ventilator 40.00 144/50 (81) 02/07/22 14:00 81 18 96 Mechanical Ventilator 40.00 137/48 (77) 02/07/22 13:00 80 02/07/22 13:00 84 18 96 Mechanical Ventilator 40.00 153/52 (85) 02/07/22 12:00 86 18 96 Mechanical Ventilator 40.00 144/49 (80) 02/07/22 12:00 95 Mechanical Ventilator 35 02/07/22 11:00 87 18 96 Mechanical Ventilator 40.00 139/50 (79) 02/07/22 10:39 86 18 96 40 02/07/22 10:00 86 18 96 Mechanical Ventilator 40.00 146/51 (82) 02/07/22 09:00 98 19 94 Mechanical Ventilator 40.00 154/58 (90) I & O 02/08/22 07:00 Intake Total 2540 ml Output Total 1600 ml Balance 940 ml Height & Weight Height: 5'6.00" Weight: 274lbs. 0.0oz. 124.810903mu; 36.65 BMI Method:Stated General Appearance: Chronically ill, Obese, Other (sedated and intubated) Respiratory: Decreased Breath Sounds, Rales (See free text) Peripheral Pulses: 1+ Dorsalis Pedis (R), 1+ Left Dors-Pedis (L) Results Lab Laboratory Tests 02/06/22 12:30 02/07/22 05:45 02/08/22 04:00 Assessment/Plan Assessment/Plan See free text Critical Care: Ventilator Management SHIMON PADILLA MD Feb 08, 2022 08:53
[2022-02-08] MEDS: DOCUSATE SODIUM 100 MG (COLACE) CAP PO SCH ×2 (10:01→20:35)
[2022-02-08] MEDS: SENNOSIDES 8.6 MG (SENOKOT) TAB PO SCH ×2 (10:01→20:35)
[2022-02-08] MEDS: PANTOPRAZOLE 40 MG (PROTONIX) VIAL IV SCH (10:02)
[2022-02-08] MEDS: MICONAZOLE 2% POWDER (DESENEX AF) 90 GM TOP SCH ×2 (10:05→20:35)
[2022-02-08] MEDS: fluCOnazole (DIFLUCAN) 10MG/ML 35ML BTL PO SCH (10:05)
[2022-02-08 10:34] VITALS: BP 144/50
[2022-02-08] MEDS: ENOXAPARIN 40 MG/0.4 ML (LOVENOX) SYR SC SCH ×2 (12:54→23:40)
[2022-02-08] MEDS: VANCOMYCIN 1500 MG/NS 500 ML IVPB IV SCH ×2 (13:22)
--- NOTE | 2022-02-08 13:23 | Progress Note ---
[facility] 02/08/22 1323: Subjective Date Seen by a Provider: Feb 08, 2022 Time Seen by a Provider: 10:50 Subjective/Events-last exam Pt is maintained on ventilator and is on propofol, responsive to painful stimuli only. Family is at bedside. SBT was attempted earlier this morning and failed with respiratory rate in the 40s. CXR today similar to yesterday with left perihilar infiltrates. Review of Systems Unable to obtain 2/2 pt condition. Focused Exam Lactate Level 02/06/22 23:35: Lactic Acid Level 7.25*H 02/07/22 03:07: Lactic Acid Level 4.19*H 02/07/22 05:45: Lactic Acid Level 2.97*H Objective Exam Last Set of Vital Signs Vital Signs Date Time Temp Pulse Resp B/P (MAP) Pulse Ox O2 Delivery O2 Flow Rate FiO2 02/08/22 12:09 37.7 02/08/22 12:00 80 22 94 Mechanical Ventilator 40.00 155/59 (91) 02/08/22 12:00 30 Capillary Refill : I&O Intake and Output 02/08/22 00:00 Intake Total 2740 ml Output Total 1875 ml Balance 865 ml Intake Oral 0 ml IV Total 2650 ml Other 90 ml Output Urine Total 1725 ml Gastric Drainage Total 150 ml General: Mild Distress, Other (on ventilator) Neck: Supple Lungs: Clear to Auscultation, Other (on ventilator) Heart: Regular Rate, No Murmurs Abdomen: Normal Bowel Sounds, Soft Extremities: No Clubbing, No Cyanosis Skin: No Significant Lesion Neuro: Other (sedated, responsive to painful stimuli only) Results Lab Laboratory Tests 02/07/22 18:00: Glucometer 235H 02/07/22 23:59: Glucometer 215H 02/08/22 04:00: White Blood Count 28.2H, Red Blood Count 3.25L, Hemoglobin 9.9L, Hematocrit 31L, Mean Corpuscular Volume 95, Mean Corpuscular Hemoglobin 31, Mean Corpuscular Hemoglobin Concent 32, Red Cell Distribution Width 14.4, Platelet Count 204, Mean Platelet Volume 10.1, Immature Granulocyte % (Auto) 1, Neutrophils (%) (Auto) 85H, Lymphocytes (%) (Auto) 11L, Monocytes (%) (Auto) 3, Eosinophils (%) (Auto) 0, Basophils (%) (Auto) 0, Neutrophils # (Auto) 24.0H, Lymphocytes # (Auto) 3.2, Monocytes # (Auto) 0.8, Eosinophils # (Auto) 0.1, Basophils # (Auto) 0.1, Immature Granulocyte # (Auto) 0.2H, Sodium Level 140, Potassium Level 3.5L, Chloride Level 111H, Carbon Dioxide Level 19L, Anion Gap 10, Blood Urea Nitrogen 27H, Creatinine 1.26, Estimat Glomerular Filtration Rate 42, BUN/Creatinine Ratio 21, Glucose Level 208H, Calcium Level 8.7, Corrected Calcium 10.3H, Phosphorus Level 1.7L, Magnesium Level 1.8, Total Bilirubin 0.5, Aspartate Amino Transf (AST/SGOT) 8, Alanine Aminotransferase (ALT/SGPT) 7, Alkaline Phosphatase 66, Total Protein 4.8L, Albumin 2.0L, Triglycerides Level 166H 02/08/22 06:11: Blood Gas Puncture Site ART LINE, Blood Gas Patient Temperature 37.0, Arterial Blood pH 7.36L, Arterial Blood Partial Pressure CO2 37, Arterial Blood Partial Pressure O2 136H, Arterial Blood HCO3 20L, Arterial Blood Total CO2 21.4, Arterial Blood Oxygen Saturation 100, Arterial Blood Base Excess -4.0L, Joe Test YES-POS, Blood Gas Ventilator Setting YES, Blood Gas Inspired Oxygen 40% 02/08/22 11:56: Glucometer 190H Microbiology 02/06/22 Gram Stain - Final, Resulted 02/06/22 Sputum Culture - Preliminary, Resulted YEAST Assessment/Plan Assessment/Plan Assess & Plan/Chief Complaint Assessment: Acute Respiratory Failure Sepsis Pneumonia UTI EVANGELINA DM HTN HLP Obesity Advanced age Plan: Vent management Supportive care IV abx CRISELDA GOZNALES DO 02/09/22 0448: Objective Exam General: Other (on ventilator) Lungs: Clear to Auscultation Heart: Regular Rate Assessment/Plan Assessment/Plan Assess & Plan/Chief Complaint Discussed end-of-life care with family Terminal extubation is expected Supervisory-Addendum Brief Verification & Attestation Participated in pt care: history, MDM, physical Personally performed: exam, history, MDM, supervision of care Care discussed with: Medical Student Procedures: n/a Results interpretation: Verified all documentation Verification and Attestation of Medical Student E/M Service A medical student performed and documented this service in my presence. I reviewed and verified all information documented by the medical student and made modifications to such information, when appropriate. I personally performed the physical exam and medical decision making. Criselda Gonzales Feb 09, 2022,04:47 CARMELO MCCARTNEY Feb 08, 2022 13:23 CRISELDA GONZALES DO Feb 09, 2022 04:48
[2022-02-08 14:40] VITALS: BP 128/37
--- NOTE | 2022-02-08 17:06 | Progress Note - Cardiology ---
Cardiology SOAP Progress Note Subjective: Intubated, on mech vent, unable to communicate Objective: I&O/Vital Signs 02/08/22 02/08/22 02/08/22 02/08/22 06:00 06:17 06:40 06:58 Pulse 79 81 83 87 Resp 18 36 23 B/P (MAP) 139/46 (77) Pulse Ox 94 92 93 94 O2 Delivery Mechanical Ventilator O2 Flow Rate 40.00 FiO2 30 30 02/08/22 02/08/22 02/08/22 02/08/22 07:00 07:00 08:00 08:00 Pulse 87 86 85 Resp B/P (MAP) 155/53 (87) 159/57 (91) Pulse Ox 94 95 95 O2 Delivery Mechanical Ventilator Mechanical Ventilator Mechanical Ventilator O2 Flow Rate 40.00 40.00 FiO2 30 02/08/22 02/08/22 02/08/22 02/08/22 08:00 09:00 10:00 10:15 Temp 37.7 Pulse 80 82 81 Resp 18 20 B/P (MAP) 164/59 163/62 (95) 165/59 (94) Pulse Ox 95 95 O2 Delivery Mechanical Ventilator Mechanical Ventilator O2 Flow Rate 40.00 40.00 02/08/22 02/08/22 02/08/22 02/08/22 10:34 11:00 12:00 12:00 Pulse 84 81 80 Resp B/P (MAP) 152/52 (85) 155/59 (91) Pulse Ox 96 95 96 94 O2 Delivery Mechanical Ventilator Mechanical Ventilator Mechanical Ventilator O2 Flow Rate 40.00 40.00 FiO2 30 30 02/08/22 02/08/22 02/08/22 02/08/22 12:09 13:00 13:00 14:00 Temp 37.7 Pulse 81 78 75 Resp 20 20 B/P (MAP) 146/54 (84) 138/50 (79) Pulse Ox 95 96 O2 Delivery Mechanical Ventilator Mechanical Ventilator O2 Flow Rate 40.00 40.00 02/08/22 02/08/22 02/08/22 02/08/22 14:40 15:00 15:50 16:00 Temp 37.7 Pulse 77 78 80 Resp 20 21 B/P (MAP) 120/42 (68) 123/48 (73) Pulse Ox 96 96 96 O2 Delivery Mechanical Ventilator Mechanical Ventilator O2 Flow Rate 40.00 40.00 FiO2 30 02/08/22 16:31 Pulse 78 B/P (MAP) 140/41 02/07/22 23:59 Intake Total 1190 ml Output Total 850 ml Balance 340 ml Weight (Pounds): 274 Weight (Ounces): 0.0 Weight (Calculated Kilograms): 124.677855 Constitutional: other (intubated and sedated) Respiratory: rhonchi (scattered), other (fair air entry; intubated; coarse breath sounds) Cardiovascular: regular rate-rhythm; No JVD; S1 and S2, systolic murmur Gastrointestional: soft, audible bowel sounds, other (lg abd hernia) Extremities: no lower extremity edema bilateral Neurologic/Psychiatric: other (unable to cooperate with exam d/t sedation) Skin: No rash on exposed areas, No ulcerations on exposed areas Results/Procedures: Labs Laboratory Tests 02/07/22 18:00: Glucometer 235H 02/07/22 23:59: Glucometer 215H 02/08/22 04:00: White Blood Count 28.2H, Red Blood Count 3.25L, Hemoglobin 9.9L, Hematocrit 31L, Mean Corpuscular Volume 95, Mean Corpuscular Hemoglobin 31, Mean Corpuscular H emoglobin Concent 32, Red Cell Distribution Width 14.4, Platelet Count 204, Mean Platelet Volume 10.1, Immature Granulocyte % (Auto) 1, Neutrophils (%) (Auto) 85H, Lymphocytes (%) (Auto) 11L, Monocytes (%) (Auto) 3, Eosinophils (%) (Auto) 0, Basophils (%) (Auto) 0, Neutrophils # (Auto) 24.0H, Lymphocytes # (Auto) 3.2, Monocytes # (Auto) 0.8, Eosinophils # (Auto) 0.1, Basophils # (Auto) 0.1, Immature Granulocyte # (Auto) 0.2H, Sodium Level 140, Potassium Level 3.5L, Chloride Level 111H, Carbon Dioxide Level 19L, Anion Gap 10, Blood Urea Nitrogen 27H, Creatinine 1.26, Estimat Glomerular Filtration Rate 42, BUN/Creatinine Ratio 21, Glucose Level 208H, Calcium Level 8.7, Corrected Calcium 10.3H, Phosphorus Level 1.7L, Magnesium Level 1.8, Total Bilirubin 0.5, Aspartate Amino Transf (AST/SGOT) 8, Alanine Aminotransferase (ALT/SGPT) 7, Alkaline Phosphatase 66, Total Protein 4.8L, Albumin 2.0L, Triglycerides Level 166H 02/08/22 06:11: Blood Gas Puncture Site ART LINE, Blood Gas Patient Temperature 37.0, Arterial Blood pH 7.36L, Arterial Blood Partial Pressure CO2 37, Arterial Blood Partial Pressure O2 136H, Arterial Blood HCO3 20L, Arterial Blood Total CO2 21.4, Arterial Blood Oxygen Saturation 100, Arterial Blood Base Excess -4.0L, Joe Test YES-POS, Blood Gas Ventilator Setting YES, Blood Gas Inspired Oxygen 40% 02/08/22 11:56: Glucometer 190H Microbiology 02/07/22 Gram Stain - Final, Resulted 02/07/22 Sputum Culture - Preliminary, Resulted Culture In Progress Laboratory Tests 02/07/22 05:45 02/08/22 04:00 A/P: Assessment: Acute resp failure requiring intubation/sedation Pneumonia with sepsis - management per medical services Probably some acute diastolic CHF - echo on 02/07/22: LVEF 60-65%, mild MAC, AoV sclerosis w/o stenosis, PASP 40- 45 mmHg No evidence of acute coronary syndrome HTN CKD-4 (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
[2022-02-08 18:36] VITALS: BP 135/47
[2022-02-08 22:20] VITALS: BP 152/53
[2022-02-09] MEDS: PROPOFOL DRIP (ICU) 100 ML IV SCH (00:49)
[2022-02-09] MEDS: NS IV 1000 ML 1,000 ML IV SCH ×2 (01:42→10:30)
[2022-02-09] MEDS: PIPERACILLIN SODIUM/TAZOBACTAM 4.5 GM in NS (IVPB) 100 ML IV SCH (03:04)
[2022-02-09 03:23] LABS: BASOPHILS # (AUTO) 0.1 10^3/uL (0.0-0.1); BASOPHILS % (AUTO) 0 % (0-10); EOSINOPHILS # (AUTO) 0.2 10^3/uL (0.0-0.3); EOSINOPHILS % (AUTO) 1 % (0-10); HEMATOCRIT 27 % (35-52); HEMOGLOBIN 8.5 g/dL (11.5-16.0); LYMPHOCYTES # (AUTO) 2.1 10^3/uL (1.0-4.0); LYMPHOCYTES % (AUTO) 12 % (12-44); MEAN CORPUSCULAR HEMOGLOBIN 30 pg (25-34); MEAN CORPUSCULAR HGB CONC 32 g/dL (32-36); MEAN CORPUSCULAR VOLUME 95 fL (80-99); MEAN PLATELET VOLUME 10.5 fL (9.0-12.2); MONOCYTES # (AUTO) 0.7 10^3/uL (0.0-1.0); MONOCYTES % (AUTO) 4 % (0-12); NEUTROPHILS % (AUTO) 82 % (42-75); PLATELET COUNT 147 10^3/uL (130-400); WHITE BLOOD COUNT 17.2 10^3/uL (4.3-11.0)
[2022-02-09 03:35] LABS: ALBUMIN 1.8 GM/DL (3.2-4.5); POTASSIUM 3.7 MMOL/L (3.6-5.0)
[2022-02-09 03:37] LABS: CALCIUM 8.6 MG/DL (8.5-10.1)
[2022-02-09] MEDS: KCL 20 MEQ TAB (K-DUR) PO SCH (03:37)
[2022-02-09] MEDS: POTASSIUM CL 10MEQ/50ML IVPB 50 ML IV SCH (03:37)
[2022-02-09 03:38] LABS: TOTAL PROTEIN 4.4 GM/DL (6.4-8.2)
[2022-02-09 03:40] LABS: BILIRUBIN,TOTAL 0.7 MG/DL (0.1-1.0)
[2022-02-09 03:41] LABS: PHOSPHORUS 2.1 MG/DL (2.3-4.7)
[2022-02-09 03:42] LABS: CREATININE SERUM 1.06 MG/DL (0.60-1.30)
[2022-02-09 03:44] LABS: MAGNESIUM 1.7 MG/DL (1.6-2.4)
[2022-02-09] MEDS: MAGNESIUM 1 GM/100 ML IVPB 100 ML IV SCH ×2 (03:48→04:05)
[2022-02-09 04:46] LABS: ABG BASE EXCESS -5.1 MMOL/L (-2.5-2.5); ABG OXYGEN SATURATION 96 % (94-100); ABG PCO2 36 MMHG (35-45); ABG PH 7.35 (7.37-7.43); ABG PO2 70 MMHG (79-93); ABG TCO2 20.6 MMOL/L (21.0-31.0)
[2022-02-09 04:47] LABS: ALLENS TEST YES-POS
[2022-02-09 04:48] LABS: VENTILATOR YES
[2022-02-09] MEDS: inSUlin ASPART (NovoLOG) 1 UNIT/0.01 ML (CHARGE PER UNIT) SC SCH (06:00)
[2022-02-09 06:32] VITALS: BP 141/44
[2022-02-09] MEDS: RT-ALBUTEROL/IPRATROPIUM 3 ML (DUONEB) VIAL INH SCH ×2 (06:32→10:33)
--- NOTE | 2022-02-09 06:44 | Occ Therapy Progress Note ---
Therapy Progress Note Pt currently intubated. OT to monitor pt's status then will initiate treatment when pt is medically stable and able to actively participate in skilled therapy. CRISTIAN SIM Feb 09, 2022 06:44
--- NOTE | 2022-02-09 07:33 | Physical Therapy Progress Note ---
Therapy Progress Note Patient is currently intubated and sedated. Will follow and start when appropriate and patient can participate. ABEBA GALVEZ PT Feb 09, 2022 07:33
--- NOTE | 2022-02-09 07:55 | Tele-ICU Progress Note ---
Subjective Date Seen by a Provider: Feb 09, 2022 Time Seen by a Provider: 07:52 Subjective/Events-last exam This virtual visit was conducted using real time audio/video. Remains on vent, AC 18 Vt 450 FiO2 30, Not on sedation, Does not follow commands but has spont eye opening CXR I reviewed from today shows elevated diaphrams due to morbid obesity and large PNA in LLL Remains on IV Zosyn, sputum culture pending, IV propofol is on standy Fentanyl off levophed off ABG 7.35/ Has thick secretions, brownish, has good cough Sepsis Event Evaluation Height, Weight, BMI Height: 5'6.00" Weight: 274lbs. 0.0oz. 124.192216nv; 48.64 BMI Method:Stated Focused Exam Lactate Level 02/06/22 23:35: Lactic Acid Level 7.25*H 02/07/22 03:07: Lactic Acid Level 4.19*H 02/07/22 05:45: Lactic Acid Level 2.97*H Exam Exam Patient acknowledged, consented, and participated in this virtual visit which was conducted using real time audio/video Vital Signs Date Time Temp Pulse Resp B/P (MAP) Pulse Ox O2 Delivery O2 Flow Rate FiO2 02/09/22 06:32 73 20 96 30 02/09/22 06:00 73 19 96 Mechanical Ventilator 30.00 136/43 (74) 02/09/22 05:15 30 02/09/22 05:00 71 19 95 Mechanical Ventilator 30.00 134/44 (74) 02/09/22 04:31 75 128/46 02/09/22 04:00 73 19 95 Mechanical Ventilator 30.00 128/41 (70) 02/09/22 03:15 97 Mechanical Ventilator 30 02/09/22 03:14 37.0 Mechanical Ventilator 30.00 02/09/22 03:00 73 22 96 Mechanical Ventilator 30.00 130/47 (74) 02/09/22 02:15 30 02/09/22 02:00 75 21 92 Mechanical Ventilator 30.00 141/43 (75) 02/09/22 01:00 80 02/09/22 01:00 76 20 99 Mechanical Ventilator 30.00 145/43 (77) 02/09/22 00:49 75 165/52 02/09/22 00:00 78 21 99 Mechanical Ventilator 30.00 158/49 (85) 02/09/22 00:00 40 02/08/22 23:40 99 Mechanical Ventilator 30 02/08/22 23:20 37.2 79 21 156/46 (82) 99 Mechanical Ventilator 30.00 02/08/22 23:00 79 22 95 Mechanical Ventilator 30.00 156/46 (82) 02/08/22 22:20 71 22 100 30 02/08/22 22:00 79 22 144/51 (82) 96 Mechanical Ventilator 30.00 02/08/22 21:00 Mechanical Ventilator 30.00 02/08/22 21:00 75 19 129/51 (77) 94 Mechanical Ventilator 30.00 02/08/22 20:31 77 144/55 02/08/22 20:00 36.8 02/08/22 20:00 76 20 142/50 (80) 98 Mechanical Ventilator 40.00 02/08/22 20:00 40 02/08/22 19:45 98 Mechanical Ventilator 40 02/08/22 19:30 36.8 75 20 135/48 (77) 98 Mechanical Ventilator 40.00 Arterial Line 02/08/22 19:00 74 19 128/46 (73) 98 Mechanical Ventilator 40.00 02/08/22 19:00 80 02/08/22 18:36 75 18 97 40 02/08/22 18:00 74 23 97 Mechanical Ventilator 40.00 132/48 (76) 02/08/22 17:00 73 20 90 Mechanical Ventilator 40.00 130/43 (72) 02/08/22 16:31 78 140/41 02/08/22 16:00 80 21 96 Mechanical Ventilator 40.00 123/48 (73) 02/08/22 16:00 98 Mechanical Ventilator 40 02/08/22 15:50 37.7 02/08/22 15:00 78 20 96 Mechanical Ventilator 40.00 120/42 (68) 02/08/22 14:40 77 20 96 30 02/08/22 14:00 75 20 96 Mechanical Ventilator 40.00 138/50 (79) 02/08/22 13:00 78 02/08/22 13:00 81 20 95 Mechanical Ventilator 40.00 146/54 (84) 02/08/22 12:09 37.7 02/08/22 12:00 80 22 94 Mechanical Ventilator 40.00 155/59 (91) 02/08/22 12:00 96 Mechanical Ventilator 30 02/08/22 11:00 81 21 95 Mechanical Ventilator 40.00 152/52 (85) 02/08/22 10:34 84 21 96 30 02/08/22 10:15 81 164/59 02/08/22 10:00 82 20 95 Mechanical Ventilator 40.00 165/59 (94) 02/08/22 09:00 80 18 95 Mechanical Ventilator 40.00 163/62 (95) 02/08/22 08:00 37.7 02/08/22 08:00 95 Mechanical Ventilator 30 02/08/22 08:00 85 21 95 Mechanical Ventilator 40.00 159/57 (91) I & O 02/09/22 06:59 Intake Total 2830 ml Output Total 785 ml Balance 2045 ml Height & Weight Height: 5'6.00" Weight: 274lbs. 0.0oz. 124.059674kg; 48.64 BMI Method:Stated General Appearance: Chronically ill, Obese, Other (sedated and intubated) Respiratory: Decreased Breath Sounds, Rales (See free text) Capillary Refill: Less Than 3 Seconds Peripheral Pulses: 1+ Dorsalis Pedis (R), 1+ Left Dors-Pedis (L) Results Lab Laboratory Tests 02/08/22 04:00 02/09/22 03:09 Assessment/Plan Assessment/Plan Large LLL PNA, will continue abx acute on chronic resp failure morbid obesity will continue on vent, no SBT, only tolerated 10 min SBT yesterday Family has decided on terminal extubation spoke with Jay COLLINScareer developer: Ventilator Management Time spent with patient (mins): 25 WADE RANGEL MD Feb 09, 2022 07:55
--- NOTE | 2022-02-09 08:07 | Diagnostic Imaging Report ---
Indication: Respiratory failure. Compared: 02/08/2022 Findings: ET tube lower thoracic trachea, OG and right IJ catheter also stable bilateral airspace disease asymmetric, greater left, has progressed in the interim and is severe. There is no pneumothorax. Impression: Worsened severe bilateral airspace consolidations with stable support apparatus and no pneumothorax. Dictated by: Dictated on workstation # [id number]
[2022-02-09] MEDS: PANTOPRAZOLE 40 MG (PROTONIX) VIAL IV SCH (08:43)
[2022-02-09] MEDS: fluCOnazole (DIFLUCAN) 10MG/ML 35ML BTL PO SCH (08:45)
[2022-02-09] MEDS: SENNOSIDES 8.6 MG (SENOKOT) TAB PO SCH (08:45)
[2022-02-09] MEDS: DOCUSATE SODIUM 100 MG (COLACE) CAP PO SCH (08:45)
[2022-02-09] MEDS: MICONAZOLE 2% POWDER (DESENEX AF) 90 GM TOP SCH (08:47)
[2022-02-09 10:34] VITALS: BP 120/31
--- NOTE | 2022-02-09 10:44 | Progress Note - Cardiology ---
Cardiology SO Progress Note Objective: I&O/Vital Signs 02/08/22 02/08/22 02/08/22 02/09/22 23:00 23:20 23:40 00:00 Temp 37.2 Pulse 79 79 Resp 21 B/P (MAP) 156/46 (82) 156/46 (82) Pulse Ox 95 99 99 O2 Delivery Mechanical Ventilator Mechanical Ventilator Mechanical Ventilator O2 Flow Rate 30.00 30.00 FiO2 30 40 02/09/22 02/09/22 02/09/22 02/09/22 00:00 00:49 01:00 01:00 Pulse 78 75 76 80 Resp 20 B/P (MAP) 165/52 158/49 (85) 145/43 (77) Pulse Ox 99 99 O2 Delivery Mechanical Ventilator Mechanical Ventilator O2 Flow Rate 30.00 30.00 02/09/22 02/09/22 02/09/22 02/09/22 02:00 02:15 03:00 03:14 Temp 37.0 Pulse 75 73 Resp B/P (MAP) 141/43 (75) 130/47 (74) Pulse Ox 92 96 O2 Delivery Mechanical Ventilator Mechanical Ventilator Mechanical Ventilator O2 Flow Rate 30.00 30.00 30.00 FiO2 30 02/09/22 02/09/22 02/09/22 02/09/22 03:15 04:00 04:31 05:00 Pulse 73 75 71 Resp 19 19 B/P (MAP) 128/46 128/41 (70) 134/44 (74) Pulse Ox 97 95 95 O2 Delivery Mechanical Ventilator Mechanical Ventilator Mechanical Ventilator O2 Flow Rate 30.00 30.00 FiO2 30 02/09/22 02/09/22 02/09/22 02/09/22 05:15 06:00 06:32 07:00 Pulse 73 73 75 Resp 19 20 21 B/P (MAP) 136/43 (74) 133/41 (71) Pulse Ox 96 96 93 O2 Delivery Mechanical Ventilator Mechanical Ventilator O2 Flow Rate 30.00 30.00 FiO2 30 30 02/09/22 02/09/22 02/09/22 02/09/22 07:00 08:00 09:00 10:00 Pulse 77 79 80 78 Resp 21 21 B/P (MAP) 128/36 (66) 135/37 (69) 141/87 (105) Pulse Ox 90 91 90 O2 Delivery Mechanical Ventilator Mechanical Ventilator Mechanical Ventilator O2 Flow Rate 30.00 30.00 30.00 02/09/22 02/09/22 10:31 10:34 Pulse 79 Resp 21 Pulse Ox 91 O2 Delivery Mechanical Ventilator O2 Flow Rate 35.00 FiO2 35 02/09/22 00:00 Intake Total 1320 ml Output Total 325 ml Balance 995 ml Weight (Pounds): 274 Weight (Ounces): 0.0 Weight (Calculated Kilograms): 124.372628 Constitutional: other (intubated and sedated) Respiratory: rhonchi (scattered), other (fair air entry; intubated; coarse breath sounds) Cardiovascular: regular rate-rhythm; No JVD; S1 and S2, systolic murmur Gastrointestional: soft, audible bowel sounds, other (lg abd hernia) Extremities: no lower extremity edema bilateral Neurologic/Psychiatric: other (unable to cooperate with exam d/t sedation) Skin: No rash on exposed areas, No ulcerations on exposed areas Results/Procedures: Labs Laboratory Tests 02/08/22 11:56: Glucometer 190H 02/08/22 18:37: Glucometer 170H 02/08/22 23:22: Glucometer 195H 02/09/22 03:09: White Blood Count 17.2H, Red Blood Count 2.83L, Hemoglobin 8.5L, Hematocrit 27L, Mean Corpuscular Volume 95, Mean Corpuscular Hemoglobin 30, Mean Corpuscular Hemoglobin Concent 32, Red Cell Distribution Width 14.6H, Platelet Count 147, Mean Platelet Volume 10.5, Immature Granulocyte % (Auto) 1, Neutrophils (%) (Auto) 82H, Lymphocytes (%) (Auto) 12, Monocytes (%) (Auto) 4, Eosinophils (%) (Auto) 1, Basophils (%) (Auto) 0, Neutrophils # (Auto) 14.0H, Lymphocytes # (Auto) 2.1, Monocytes # (Auto) 0.7, Eosinophils # (Auto) 0.2, Basophils # (Auto) 0.1, Immature Granulocyte # (Auto) 0.1, Sodium Level 142, Potassium Level 3.7, Chloride Level 115H, Carbon Dioxide Level 16L, Anion Gap 11, Blood Urea Nitrogen 24H, Creatinine 1.06, Estimat Glomerular Filtration Rate 51, BUN/Creatinine Ratio 23, Glucose Level 214H, Calcium Level 8.6, Corrected Calcium 10.4H, Phos phorus Level 2.1L, Magnesium Level 1.7, Total Bilirubin 0.7, Aspartate Amino Transf (AST/SGOT) 13, Alanine Aminotransferase (ALT/SGPT) 9, Alkaline Phosphatase 67, Total Protein 4.4L, Albumin 1.8L 02/09/22 04:38: Blood Gas Puncture Site RIGHT RADIAL, Blood Gas Patient Temperature 37.0, Arterial Blood pH 7.35L, Arterial Blood Partial Pressure CO2 36, Arterial Blood Partial Pressure O2 70L, Arterial Blood HCO3 20L, Arterial Blood Total CO2 20.6L , Arterial Blood Oxygen Saturation 96, Arterial Blood Base Excess -5.1L, Joe Test YES-POS, Blood Gas Ventilator Setting YES, Blood Gas Inspired Oxygen NA 02/09/22 05:56: Glucometer H Microbiology 02/07/22 Gram Stain - Final, Resulted 02/07/22 Sputum Culture - Preliminary, Resulted Culture In Progress Laboratory Tests 02/08/22 04:00 02/09/22 03:09 Procedures NAME: CHIQUITA LERNER [facility] REC#: [id number] PT STATUS: ADM IN : 1935 PHYSICIAN: SIMONE GONZALES DO ADMIT DATE: 02/06/22/ICU Draft Date of Exam:02/09/22 CHEST 1 VIEW, AP/PA ONLY Indication: Respiratory failure. Compared: 02/08/2022 Findings: ET tube lower thoracic trachea, OG and right IJ catheter also stable bilateral airspace disease asymmetric, greater left, has progressed in the interim and is severe. There is no pneumothorax. Impression: Worsened severe bilateral airspace consolidations with stable support apparatus and no pneumothorax. 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
--- NOTE | 2022-02-09 13:47 | Progress Note ---
[facility] 1347: Subjective Date Seen by a Provider: Feb 09, 2022 Time Seen by a Provider: 10:45 Subjective/Events-last exam This is an 86 yr old female, pt of Dr. Rivera. Pt has a past medical history of diabetes and hypertension. She presented to the [facility] after a fall the pre vi. She was found to be in acute hypoxic respiratory failure with severe sepsis from pneumonia, requiring intubation and central line placement, and higher level of care for ICU admission. Dr. Anderson assumed care. EICU was consulted along with Cardiology and ECHO was obtained. EVANGELINA and elevated wbc with bandemia and multisystem organ failure precludes anything but a poor prognosis suspected given her advanced age and overall debility at baseline. SBT was attempted yesterday and failed with respiratory rate in the 40s. Dr. Anderson has spoken with daughter and [id number] at bedside extensively, for 15 minutes today, who reported not wanting this to be a long process and would want to terminally extubate if that were the case. CXR continues to worsen with bilateral consolidations. Review of Systems Unable to obtain 2/2 pt condition. Focused Exam Lactate Level 02/06/22 23:35: Lactic Acid Level 7.25*H 02/07/22 03:07: Lactic Acid Level 4.19*H 02/07/22 05:45: Lactic Acid Level 2.97*H Objective Exam Last Set of Vital Signs Vital Signs Date Time Temp Pulse Resp B/P (MAP) Pulse Ox O2 Delivery O2 Flow Rate FiO2 02/09/22 13:00 75 02/09/22 12:00 19 118/65 (82) 94 Mechanical Ventilator 35.00 02/09/22 10:34 35 02/09/22 08:00 36.7 Capillary Refill : Less Than 3 Seconds I&O Intake and Output 02/09/22 00:00 Intake Total 1720 ml Output Total 975 ml Balance 745 ml Intake Oral 0 ml IV Total 1600 ml Other 120 ml Output Urine Total 975 ml # Bowel Movements 1 General: Moderate Distress, Other (on ventilator) HEENT: Atraumatic, Mucous Memb Moist/[place] Neck: Supple, No JVD Lungs: Clear to Auscultation, Other (on ventilator) Heart: Regular Rate, Normal S1, Normal S2 Abdomen: Soft, No Tenderness Extremities: No Clubbing, Normal Pulses Skin: No Significant Lesion, Other (pallor) Neuro: Other (unresponsive) Results Lab Laboratory Tests 02/08/22 18:37: Glucometer 170H 02/08/22 23:22: Glucometer 195H 02/09/22 03:09: White Blood Count 17.2H, Red Blood Count 2.83L, Hemoglobin 8.5L, Hematocrit 27L, Mean Corpuscular Volume 95, Mean Corpuscular Hemoglobin 30, Mean Corpuscular Hemoglobin Concent 32, Red Cell Distribution Width 14.6H, Platelet Count 147, Mean Platelet Volume 10.5, Immature Granulocyte % (Auto) 1, Neutrophils (%) (Auto) 82H, Lymphocytes (%) (Auto) 12, Monocytes (%) (Auto) 4, Eosinophils (%) (Auto) 1, Basophils (%) (Auto) 0, Neutrophils # (Auto) 14.0H, Lymphocytes # (Auto) 2.1, Monocytes # (Auto) 0.7, Eosinophils # (Auto) 0.2, Basophils # (Auto) 0.1, Immature Granulocyte # (Auto) 0.1, Sodium Level 142, Potassium Level 3.7, Chloride Level 115H, Carbon Dioxide Level 16L, Anion Gap 11, Blood Urea Nitrogen 24H, Creatinine 1.06, Estimat Glomerular Filtration Rate 51, BUN/Creatinine Ratio 23, Glucose Level 214H, Calcium Level 8.6, Corrected Calcium 10.4H, Phosphorus Level 2.1L, Magnesium Level 1.7, Total Bilirubin 0.7, Aspartate Amino Transf (AST/SGOT) 13, Alanine Aminotransferase (ALT/SGPT) 9, Alkaline Phosphatase 67, Total Protein 4.4L, Albumin 1.8L 02/09/22 04:38: Blood Gas Puncture Site RIGHT RADIAL, Blood Gas Patient Temperature 37.0, Arterial Blood pH 7.35L, Arterial Blood Partial Pressure CO2 36, Arterial Blood Partial Pressure O2 70L, Arterial Blood HCO3 20L, Arterial Blood Total CO2 20.6L , Arterial Blood Oxygen Saturation 96, Arterial Blood Base Excess -5.1L, Joe Test YES-POS, Blood Gas Ventilator Setting YES, Blood Gas Inspired Oxygen NA 02/09/22 05:56: Glucometer 202H Microbiology 02/07/22 Gram Stain - Final, Complete 02/07/22 Sputum Culture - Final, Complete YEAST Assessment/Plan Assessment/Plan Assess & Plan/Chief Complaint Acute Respiratory Failure Sepsis Pneumonia UTI EVANGELINA DM HTN HLP Obesity Advanced age Vent management- expect to terminally extubate today Comfort care SIMONE ANDERSON DO 02/10/22 0627: Supervisory-Addendum Brief Verification & Attestation Participated in pt care: history, MDM, physical Personally performed: exam, history, MDM, supervision of care Care discussed with: Medical Student Procedures: n/a Results interpretation: Verified all documentation Verification and Attestation of Medical Student E/M Service A medical student performed and documented this service in my presence. I reviewed and verified all information documented by the medical student and made modifications to such information, when appropriate. I personally performed the physical exam and medical decision making. Simone Anderson, Feb 10, 2022,06:27 CARMELO [facility]ARTNEY Feb 09, 2022 13:47 SIMONE ANDERSON DO Feb 10, 2022 06:27
[2022-02-09] MEDS ORDERED: ACETAMINOPHEN 650 MG SUPP (TYLENOL) PR PRN (14:30)
[2022-02-09] MEDS ORDERED: SALIVA SUBSTITUTE 60 ML SPRAY(MOUTHKOTE) MM PRN (14:30)
[2022-02-09] MEDS ORDERED: ARTIFICAL TEARS 0.4 ML UNIT DOSE (REFRESH PLUS) OU PRN (14:30)
[2022-02-09] MEDS ORDERED: SCOPOLAMINE 1.5 MG (TRANSDERM-SCOP) PATCH TOP SCH (14:30)
[2022-02-09] MEDS ORDERED: RT-ALBUTEROL/IPRATROPIUM 3 ML (DUONEB) VIAL INH PRN (14:30)
[2022-02-09] MEDS ORDERED: LORazepam 1 MG (ATIVAN) TAB SL PRN (14:30)
[2022-02-09] MEDS ORDERED: ATROPINE 1% OPHTHALMIC SOLN 2 ML SL PRN (14:30)
[2022-02-09] MEDS ORDERED: PROMETHAZINE INJ 25 MG/ML (PHENERGAN) AMP IVP PRN (14:30)
[2022-02-09] MEDS ORDERED: ONDANSETRON 4 MG/2 ML (SDV) Z0FRAN IVP PRN (14:30)
[2022-02-09] MEDS: LORazepam INJ 2 MG/ML (ATIVAN) VIAL IVP PRN ×2 (15:10→22:04)
[2022-02-09] MEDS: HYDROmorphone 2 MG/ML VIAL (DILAUDID) IV PRN ×5 (15:23→23:57)
[2022-02-09] MEDS: GLYCOPYRROLATE 0.2 MG/ML (ROBINUL) 2 ML VIAL IV PRN ×2 (15:29→22:04)
--- NOTE | 2022-02-10 05:37 | Discharge Summary ---
Diagnosis/Chief Complaint Date of Admission Feb 06, 2022 at 10:49 Date of Discharge Feb 10, 2022 at 03:35 Discharge Diagnosis Acute Respiratory Failure Sepsis Pneumonia UTI EVANGELINA DM HTN HLP Obesity Advanced age Discharge Summary Discharge Physical Examination Allergies: Coded Allergies: Cephalexin Monohydrate (Unverified Allergy, Unknown, 03/12/12) morphine (Unverified Allergy, Unknown, 03/12/12) Uncoded Allergies: tape (Allergy, Mild, 05/11/12) Vitals & I&Os Vital Signs Date Time Temp Pulse Resp B/P (MAP) Pulse Ox O2 Delivery O2 Flow Rate FiO2 02/09/22 19:51 Room Air 02/09/22 14:15 30 02/09/22 14:00 78 23 156/49 (84) 96 35.00 02/09/22 08:00 36.7 Hospital Course This is an 86 yr old female, pt of Dr. Rivera. Pt has a past medical history of diabetes and hypertension. She presented to the [facility] ER after a fall the previous day. She was found to be in acute hypoxic respiratory failure with sev ere sepsis from pneumonia, requiring intubation and central line placement, and higher level of care for ICU admission. Dr. Anderson assumed care. EICU was consulted along with Cardiology and ECHO was obtained. EVANGELINA and elevated wbc with bandemia and multisystem organ failure precludes anything but a poor prognosis suspected given her advanced age and overall debility at baseline. SBT was attempted yesterday and failed with respiratory rate in the 40s. Dr. Anderson has spoken with daughter and [id number] at bedside extensively, for 15 minutes today, who reported not wanting this to be a long process and would want to terminally extubate if that were the case. CXR continues to worsen with bilateral consolidations. Labs (last 24 hrs) Laboratory Tests 02/06/22 12:30: White Blood Count 32.7*H, Red Blood Count 3.58L, Hemoglobin 10.8L, Hematocrit 35, Mean Corpuscular Volume 98, Mean Corpuscular Hemoglobin 30, Mean Corpuscular Hemoglobin Concent 31L, Red Cell Distribution Width 14.3, Platelet Count 299, Mean Platelet Volume 10.1, Immature Granulocyte % (Auto) 6, Neutrophils (%) (Auto) 85H, Lymphocytes (%) (Auto) 5L, Monocytes (%) (Auto) 3, Eosinophils (%) (Auto) 0, Basophils (%) (Auto) 0, Neutrophils # (Auto) 27.7H, Lymphocytes # (Auto) 1.8, Monocytes # (Auto) 1.1H, Eosinophils # (Auto) 0.0, Basophils # (Auto) 0.1, Immature Granulocyte # (Auto) 2.0H, Neutrophils % (Manual) 55, Lymphocytes % (Manual) 7, Monocytes % (Manual) 4, Eosinophils % (Manual) 0, Basophils % (Manual) 0, Metamyelocytes % 9, Band Neutrophils 25, Polychromasia SLIGHT, Anisocytosis SLIGHT, Blood Gas Puncture Site L ART LINE, Blood Gas Patient Temperature 36.3, Arterial Blood pH 7.32*L, Arterial Blood Partial Pressure CO2 31L, Arterial Blood Partial Pressure O2 132H, Arterial Blood HCO3 16*L, Arterial Blood Total CO2 16.6L, Arterial Blood Oxygen Saturation 100, Arterial Blood Base Excess -9.4L, Joe Test N/A, Blood Gas Ventilator Setting YES, Blood Gas Inspired Oxygen 60 L, Sodium Level 138, Potassium Level 4.9, Chloride Level 106, Carbon Dioxide Level 14L, Anion Gap 18H, Blood Urea Nitrogen 23H, Creatinine 1.92H, Estimat Glomerular Filtration Rate 25, BUN/Creatinine Ratio 12, Glucose Level 309H, Lactic Acid Level 8.24*H, Calcium Level 8.5, Corre cted Calcium 9.9, Total Bilirubin 1.4H, Aspartate Amino Transf (AST/SGOT) 12, Alanine Aminotransferase (ALT/SGPT) 11, Alkaline Phosphatase 59, Total Protein 4.9L, Albumin 2.2L, Triglycerides Level 73 02/06/22 15:25: Lactic Acid Level 8.51*H 02/06/22 15:58: Glucometer 294H 02/06/22 19:30: Lactic Acid Level 9.11*H 02/06/22 20:12: Glucometer 294H 02/06/22 23:35: Lactic Acid Level 7.25*H 02/07/22 01:58: Glucometer 315H 02/07/22 03:07: Lactic Acid Level 4.19*H 02/07/22 05:45: White Blood Count 36.2*H, Red Blood Count 3.49L, Hemoglobin 10.5L, Hematocrit 33L, Mean Corpuscular Volume 95, Mean Corpuscular Hemoglobin 30, Mean Corpuscular Hemoglobin Concent 32, Red Cell Distribution Width 14.3, Platelet Count 265, Mean Platelet Volume 10.0, Immature Granulocyte % (Auto) 6, Neutrophils (%) (Auto) 85H, Lymphocytes (%) (Auto) 5L, Monocytes (%) (Auto) 4, Eosinophils (%) (Auto) 0, Basophils (%) (Auto) 1, Neutrophils # (Auto) 30.6H, Lymphocytes # (Auto) 1.7, Monocytes # (Auto) 1.4H, Eosinophils # (Auto) 0.1, Basophils # (Auto) 0.2H, Immature Granulocyte # (Auto) 2.1H, Sodium Level 139, Potassium Level 3.9, Chloride Level 106, Carbon Dioxide Level 20L, Anion Gap 13, Blood Urea Nitrogen 30H, Creatinine 1.71H, Estimat Glomerular Filtration Rate 29, BUN/Creatinine Ratio 18, Glucose Level 336H, Lactic Acid Level 2.97*H, Calcium Level 8.4L, Corrected Calcium 9.8, Phosphorus Level 2.2L, Magnesium Level 1.2L, Total Bilirubin 0.7, Aspartate Amino Transf (AST/SGOT) 10, Alanine Aminotransferase (ALT/SGPT) 10, Alkaline Phosphatase 59, Total Protein 5.0L, Albumin 2.2L 02/07/22 08:25: Blood Gas Puncture Site ART LINE, Blood Gas Patient Temperature 36.2, Arterial Blood pH 7.39, Arterial Blood Partial Pressure CO2 38, Arterial Blood Partial Pressure O2 76L, Arterial Blood HCO3 23, Arterial Blood Total CO2 23.8, Arterial Blood Oxygen Saturation 98, Arterial Blood Base Excess -1.8, Joe Test YES-POS, Blood Gas Ventilator Setting YES, Blood Gas Inspired Oxygen 40.0 02/07/22 12:07: Glucometer 255H 02/07/22 18:00: Glucometer 235H 02/07/22 23:59: Glucometer 215H 02/08/22 04:00: White Blood Count 28.2H, Red Blood Count 3.25L, Hemoglobin 9.9L, Hematocrit 31L, Mean Corpuscular Volume 95, Mean Corpuscular Hemoglobin 31, Mean Corpuscular Hemoglobin Concent 32, Red Cell Distribution Width 14.4, Platelet Count 204, Mean Platelet Volume 10.1, Immature Granulocyte % (Auto) 1, Neutrophils (%) (Auto) 85H, Lymphocytes (%) (Auto) 11L, Monocytes (%) (Auto) 3, Eosinophils (%) (Auto) 0, Basophils (%) (Auto) 0, Neutrophils # (Auto) 24.0H, Lymphocytes # (Au to) 3.2, Monocytes # (Auto) 0.8, Eosinophils # (Auto) 0.1, Basophils # (Auto) 0.1, Immature Granulocyte # (Auto) 0.2H, Sodium Level 140, Potassium Level 3.5L, Chloride Level 111H, Carbon Dioxide Level 19L, Anion Gap 10, Blood Urea Nitrogen 27H, Creatinine 1.26, Estimat Glomerular Filtration Rate 42, BUN/Creatinine Ratio 21, Glucose Level 208H, Calcium Level 8.7, Corrected Calcium 10.3H, Phosphorus Level 1.7L, Magnesium Level 1.8, Total Bilirubin 0.5, Aspartate Amino Transf (AST/SGOT) 8, Alanine Aminotransferase (ALT/SGPT) 7, Alkaline Phosphatase 66, Total Protein 4.8L, Albumin 2.0L, Triglycerides Level 166H 02/08/22 06:11: Blood Gas Puncture Site ART LINE, Blood Gas Patient Temperature 37.0, Arterial Blood pH 7.36L, Arterial Blood Partial Pressure CO2 37, Arterial Blood Partial Pressure O2 136H, Arterial Blood HCO3 20L, Arterial Blood Total CO2 21.4, Arterial Blood Oxygen Saturation 100, Arterial Blood Base Excess -4.0L, Joe Test YES-POS, Blood Gas Ventilator Setting YES, Blood Gas Inspired Oxygen 40% 02/08/22 11:56: Glucometer 190H 02/08/22 18:37: Glucometer 170H 02/08/22 23:22: Glucometer 195H 02/09/22 03:09: White Blood Count 17.2H, Red Blood Count 2.83L, Hemoglobin 8.5L, Hematocrit 27L, Mean Corpuscular Volume 95, Mean Corpuscular Hemoglobin 30, Mean Corpuscular Hemoglobin Concent 32, Red Cell Distribution Width 14.6H, Platelet Count 147, Mean Platelet Volume 10.5, Immature Granulocyte % (Auto) 1, Neutrophils (%) (Auto) 82H, Lymphocytes (%) (Auto) 12, Monocytes (%) (Auto) 4, Eosinophils (%) (Auto) 1, Basophils (%) (Auto) 0, Neutrophils # (Auto) 14.0H, Lymphocytes # (Auto) 2.1, Monocytes # (Auto) 0.7, Eosinophils # (Auto) 0.2, Basophils # (Auto) 0.1, Immature Granulocyte # (Auto) 0.1, Sodium Level 142, Potassium Level 3.7, Chloride Level 115H, Carbon Dioxide Level 16L, Anion Gap 11, Blood Urea Nitrogen 24H, Creatinine 1.06, Estimat Glomerular Filtration Rate 51, BUN/Creatinine Ratio 23, Glucose Level 214H, Calcium Level 8.6, Corrected Calcium 10.4H, Phosphorus Level 2.1L, Magnesium Level 1.7, Total Bilirubin 0.7, Aspartate Amino Transf (AST/SGOT) 13, Alanine Aminotransferase (ALT/SGPT) 9, Alkaline Phosphatase 67, Total Protein 4.4L, Albumin 1.8L 02/09/22 04:38: Blood Gas Puncture Site RIGHT RADIAL, Blood Gas Patient Temperature 37.0, Arterial Blood pH 7.35L, Arterial Blood Partial Pressure CO2 36, Arterial Blood Partial Pressure O2 70L, Arterial Blood HCO3 20L, Arterial Blood Total CO2 20.6L , Arterial Blood Oxygen Saturation 96, Arterial Blood Base Excess -5.1L, Joe Test YES-POS, Blood Gas Ventilator Setting YES, Blood Gas Inspired Oxygen NA 02/09/22 05:56: Glucometer 202H Microbiology 02/07/22 Gram Stain - Final, Complete 02/07/22 Sputum Culture - Final, Complete YEAST Pending Labs Microbiology Date/Time Source Procedure Growth Status 02/07/22 08:15 Sputum Endotracheal Gram Stain - Final Complete 02/07/22 08:15 Sputum Culture - Final YEAST Complete 02/06/22 11:07 Sputum Endotracheal Gram Stain - Final Complete 02/06/22 11:07 Sputum Culture - Final Usual upper respiratory jovana YEAST Complete Laboratory Tests 02/06/22 12:30: White Blood Count 32.7, Red Blood Count 3.58, Hemoglobin 10.8, Hematocrit 35, Mean Corpuscular Volume 98, Mean Corpuscular Hemoglobin 30, Mean Corpuscular Hemoglobin Concent 31, Red Cell Distribution Width 14.3, Platelet Count 299, Mean Platelet Volume 10.1, Immature Granulocyte % (Auto) 6, Neutrophils (%) (Auto) 85, Lymphocytes (%) (Auto) 5, Monocytes (%) (Auto) 3, Eosinophils (%) (Auto) 0, Basophils (%) (Auto) 0, Neutrophils # (Auto) 27.7, Lymphocytes # (Auto) 1.8, Monocytes # (Auto) 1.1, Eosinophils # (Auto) 0.0, Basophils # (Auto) 0.1, Immature Granulocyte # (Auto) 2.0, Neutrophils % (Manual) 55, Lymphocytes % (Manual) 7, Monocytes % (Manual) 4, Eosinophils % (Manual) 0, Basophils % (Manual) 0, Metamyelocytes % 9, Band Neutrophils 25, Polychromasia SLIGHT, Anisocytosis SLIGHT, Blood Gas Puncture Site L ART LINE, Blood Gas Patient Temperature 36.3, Arterial Blood pH 7.32, Arterial Blood Partial Pressure CO2 31, Arterial Blood Partial Pressure O2 132, Arterial Blood HCO3 16, Arterial Blood Total CO2 16.6, Arterial Blood Oxygen Saturation 100, Arterial Blood Base Excess -9.4, Joe Test N/A, Blood Gas Ventilator Setting YES, Blood Gas Inspired Oxygen 60 L, Sodium Level 138, Potassium Level 4.9, Chloride Level 106, Carbon Dioxide Level 14, Anion Gap 18, Blood Urea Nitrogen 23, Creatinine 1.92, Estimat Glomerular Filtration Rate 25, BUN/Creatinine Ratio 12, Glucose Level 309, Lactic Acid Level 8.24, Calcium Level 8.5, Corrected Calcium 9.9, Total Bilirubin 1.4, Aspartate Amino Transf (AST/SGOT) 12, Alanine Aminotransferase (ALT/SGPT) 11, Alkaline Phosphatase 59, Total Protein 4.9, Albumin 2.2, Triglycerides Level 73 02/06/22 15:25: Lactic Acid Level 8.51 02/06/22 15:58: Glucometer 294 02/06/22 19:30: Lactic Acid Level 9.11 02/06/22 20:12: Glucometer 294 02/06/22 23:35: Lactic Acid Level 7.25 02/07/22 01:58: Glucometer 315 02/07/22 03:07: Lactic Acid Level 4.19 02/07/22 05:45: White Blood Count 36.2, Red Blood Count 3.49, Hemoglobin 10.5, Hematocrit 33, Mean Corpuscular Volume 95, Mean Corpuscular Hemoglobin 30, Mean Corpuscular Hemoglobin Concent 32, Red Cell Distribution Width 14.3, Platelet Count 265, Mean Platelet Volume 10.0, Immature Granulocyte % (Auto) 6, Neutrophils (%) (Auto) 85, Lymphocytes (%) (Auto) 5, Monocytes (%) (Auto) 4, Eosinophils (%) (Auto) 0, Basophils (%) (Auto) 1, Neutrophils # (Auto) 30.6, Lymphocytes # (Auto) 1.7, Monocytes # (Auto) 1.4, Eosinophils # (Auto) 0.1, Basophils # (Auto) 0.2, Immature Granulocyte # (Auto) 2.1, Sodium Level 139, Potassium Level 3.9, Chloride Level 106, Carbon Dioxide Level 20, Anion Gap 13, Blood Urea Nitrogen 30, Creatinine 1.71, Estimat Glomerular Filtration Rate 29, BUN/Creatinine Ratio 18, Glucose Level 336, Lactic Acid Level 2.97, Calcium Level 8.4, Corrected Calcium 9.8, Phosphorus Level 2.2, Magnesium Level 1.2, Total Bilirubin 0.7, Aspartate Amino Transf (AST/SGOT) 10, Alanine Aminotransferase (ALT/SGPT) 10, Alkaline Phosphatase 59, Total Protein 5.0, Albumin 2.2 02/07/22 08:25: Blood Gas Puncture Site ART LINE, Blood Gas Patient Temperature 36.2, Arterial Blood pH 7.39, Arterial Blood Partial Pressure CO2 38, Arterial Blood Partial Pressure O2 76, Arterial Blood HCO3 23, Arterial Blood Total CO2 23.8, Arterial Blood Oxygen Saturation 98, Arterial Blood Base Excess -1.8, Joe Test YES-POS, Blood Gas Ventilator Setting YES, Blood Gas Inspired Oxygen 40.0 02/07/22 12:07: Glucometer 255 02/07/22 18:00: Glucometer 235 02/07/22 23:59: Glucometer 215 02/08/22 04:00: White Blood Count 28.2, Red Blood Count 3.25, Hemoglobin 9.9, Hematocrit 31, Mean Corpuscular Volume 95, Mean Corpuscular Hemoglobin 31, Mean Corpuscular Hemoglobin Concent 32, Red Cell Distribution Width 14.4, Platelet Count 204, Mean Platelet Volume 10.1, Immature Granulocyte % (Auto) 1, Neutrophils (%) (Auto) 85, Lymphocytes (%) (Auto) 11, Monocytes (%) (Auto) 3, Eosinophils (%) (Auto) 0, Basophils (%) (Auto) 0, Neutrophils # (Auto) 24.0, Lymphocytes # (Auto) 3.2, Monocytes # (Auto) 0.8, Eosinophils # (Auto) 0.1, Basophils # (Auto) 0.1, Immature Granulocyte # (Auto) 0.2, Sodium Level 140, Potassium Level 3.5, Chloride Level 111, Carbon Dioxide Level 19, Anion Gap 10, Blood Urea Nitrogen 27, Creatinine 1.26, Estimat Glomerular Filtration Rate 42, BUN/Creatinine Ratio 21, Glucose Level 208, Calcium Level 8.7, Corrected Calcium 10.3, Phosphorus Level 1.7, Magnesium Level 1.8, Total Bilirubin 0.5, Aspartate Amino Transf (AST/SGOT) 8, Alanine Aminotransferase (ALT/SGPT) 7, Alkaline Phosphatase 66, Total Protein 4.8, Albumin 2.0, Triglycerides Level 166 02/08/22 06:11: Blood Gas Puncture Site ART LINE, Blood Gas Patient Temperature 37.0, Arterial Blood pH 7.36, Arterial Blood Partial Pressure CO2 37, Arterial Blood Partial Pressure O2 136, Arterial Blood HCO3 20, Arterial Blood Total CO2 21.4, Arterial Blood Oxygen Saturation 100, Arterial Blood Base Excess -4.0, Joe Test YES- POS, Blood Gas Ventilator Setting YES, Blood Gas Inspired Oxygen 40% 02/08/22 11:56: Glucometer 190 02/08/22 18:37: Glucometer 170 02/08/22 23:22: Glucometer 195 02/09/22 03:09: White Blood Count 17.2, Red Blood Count 2.83, Hemoglobin 8.5, Hematocrit 27, Mean Corpuscular Volume 95, Mean Corpuscular Hemoglobin 30, Mean Corpuscular Hemoglobin Concent 32, Red Cell Distribution Width 14.6, Platelet Count 147, Mean Platelet Volume 10.5, Immature Granulocyte % (Auto) 1, Neutrophils (%) (Auto) 82, Lymphocytes (%) (Auto) 12, Monocytes (%) (Auto) 4, Eosinophils (%) (Auto) 1, Basophils (%) (Auto) 0, Neutrophils # (Auto) 14.0, Lymphocytes # (Auto) 2.1, Monocytes # (Auto) 0.7, Eosinophils # (Auto) 0.2, Basophils # (Auto) 0.1, Immature Granulocyte # (Auto) 0.1, Sodium Level 142, Potassium Level 3.7, Chloride Level 115, Carbon Dioxide Level 16, Anion Gap 11, Blood Urea Nitrogen 24, Creatinine 1.06, Estimat Glomerular Filtration Rate 51, BUN/Creatinine Ratio 23, Glucose Level 214, Calcium Level 8.6, Corrected Calcium 10.4, Phosphorus Level 2.1, Magnesium Level 1.7, Total Bilirubin 0.7, Aspartate Amino Transf (AST/SGOT) 13, Alanine Aminotransferase (ALT/SGPT) 9, Alkaline Phosphatase 67, Total Protein 4.4, Albumin 1.8 02/09/22 04:38: Blood Gas Puncture Site RIGHT RADIAL, Blood Gas Patient Temperature 37.0, Arterial Blood pH 7.35, Arterial Blood Partial Pressure CO2 36, Arterial Blood Partial Pressure O2 70, Arterial Blood HCO3 20, Arterial Blood Total CO2 20.6, Arterial Blood Oxygen Saturation 96, Arterial Blood Base Excess -5.1, Joe Test YES-POS, Blood Gas Ventilator Setting YES, Blood Gas Inspired Oxygen NA 02/09/22 05:56: Glucometer 202 Discharge Home Medications: Active Scripts Active Reported Nexium 24Hr (Esomeprazole Magnesium) 20 Mg Capsule.dr 20 Mg PO BID Clotrimazole-Betamethasone Crm (Clotrimazole/Betamethasone Dip) 1 %-0.05 % Cream..g. 1 Applic TOP BID PRN Diazepam 2 Mg Tablet 2 Mg PO DAILY PRN Amlodipine Besylate 5 Mg Tablet 5 Mg PO DAILY Lantus (Insulin Glargine,Hum.rec.anlog) 100 Unit/Ml Vial 23-28 Unit SQ HS Lantus (Insulin Glargine,Hum.rec.anlog) 100 Unit/Ml Vial 15 Units SC DAILY Fluoxetine HCl 40 Mg Capsule 40 Mg PO DAILY Neurontin (Gabapentin) 300 Mg Capsule 300 Mg PO QID PRN Atorvastatin Calcium 10 Mg Tablet 10 Mg PO HS Furosemide 20 Mg Tablet 20 Mg PO Q48H Folic Acid 1 Mg Tablet 1 Mg PO DAILY Telmisartan 80 Mg Tablet 80 Mg PO DAILY Oxybutynin Chloride ER (Oxybutynin Chloride) 15 Mg Tab.er.24 15 Mg PO HS Nebivolol HCl 2.5 Mg Tablet 2.5 Mg PO HS Acetaminophen-Cod #3 Tablet (Acetaminophen with Codeine) 300 Mg-30 Mg Tablet 1 Ea PO TID PRN Hydroxyzine HCl 10 Mg Tablet 10 Mg PO HS Instructions to patient/family Please see electronic discharge instructions given to patient. Diagnosis/Problems Diagnosis/Problems (1) Acute respiratory failure (2) Pneumonia (3) UTI (urinary tract infection) (4) EVANGELINA (acute kidney injury) (5) Diabetes mellitus (6) Advanced age (7) Obesity (BMI 30-39.9) (8) Severe sepsis (9) Leukocytosis (10) Bandemia (11) Anemia (12) Serum albumin decreased SIMONE ANDERSON DO Feb 10, 2022 05:37
== END 2022-02-10 03:35 | disposition expired | DRG 871 ==
LOC: ICU 10:49 → 4TH 02-09 17:59
PROVIDERS: ADMIT Internal Medicine; ATTEND Internal Medicine
PROC: 5A1945Z Respiratory Ventilation, 24-96 Consecutive Hours (ICD-10-PCS; principal; 2022-02-06)
DX: A41.9 Sepsis, unspecified organism (principal); I50.31 Acute diastolic (congestive) heart failure; J18.9 Pneumonia, unspecified organism; J96.21 Acute and chronic respiratory failure with hypoxia; N17.9 Acute kidney failure, unspecified; N39.0 Urinary tract infection, site not specified; I13.0 Hypertensive heart and chronic kidney disease with heart failure and stage 1 through stage 4 chronic kidney disease, or unspecified chronic kidney disease; N18.4 Chronic kidney disease, stage 4 (severe); E87.20 Acidosis, unspecified; Z68.42 Body mass index [BMI] 45.0-49.9, adult; Z66 Do not resuscitate; Z51.5 Encounter for palliative care; R65.20 Severe sepsis without septic shock; E11.22 Type 2 diabetes mellitus with diabetic chronic kidney disease; Z79.4 Long term (current) use of insulin; E78.00 Pure hypercholesterolemia, unspecified; K21.9 Gastro-esophageal reflux disease without esophagitis; D64.9 Anemia, unspecified; E66.01 Morbid (severe) obesity due to excess calories; Z88.1 Allergy status to other antibiotic agents; Z88.5 Allergy status to narcotic agent
CPT/HCPCS: 36415; 71045; 71250; 74176; 80053; 82805; 82947; 83605; 83735; 84100; 84478; 85007; 85025; 85027; 87070; 87205; 93005; 93306; 94002; 94003; 94640; 94799